=== PATIENT | male | born 1950 | race Caucasian/White ===

== ENCOUNTER 2020-02-04 05:06 | Emergency (ER) | payer OTHER ==
[2020-02-04] MEDS ORDERED: Sodium Chloride 0.9% 1000 ML 1,000 ML IV STA ×2 (05:11→08:04)
--- NOTE | 2020-02-04 05:20 | ERPHSYRPT ---
- History of Present Illness Historian: patient, EMS Exam Limitations: no limitations Patient Subjective Stated Complaint: . Triage Nursing Assessment: . Timing/Duration: today Activities at Onset: none Quality: fullness, sharpness Abdominal Pain Onset Location: generalized abdomen Pain Radiation: no radiation Severity of Pain-Max: mild Severity of Pain-Current: mild Modifying Factors: Improves With: movement, palpation Associated Symptoms: syncope, weakness, other (increased resp) Previous symptoms: no prior history, recent hospitalization, recently treated Hx Tetanus, Diphtheria Vaccination/Date Given: No (unknown) Hx Influenza Vaccination/Date Given: No (unknown) Hx Pneumococcal Vaccination/Date Given: No (unknown) Immunizations Up to Date: No (unknown) <DEBBIE FARLEY - Last Filed: 02/04/20 06:56> <ELY MULLIGAN - Last Filed: 02/04/20 18:16> - History of Present Illness Time Seen by Provider: 02/04/20 05:16 Physician History: pt had back surgery for a 'cyst' at [facility] 2 weeks ago , and has been falling recent ly with last one this night and was unable to stand afterwards. now has abd pain and tenderness. no neuro deficit but is hypotensive in 80s on BP upon arrival. Also c/o pain in both hips after fall. and left shoulder , neck and left forehead ( small superficial lac ) can close with steristrip. not complaining of short of breath but appears dyspneic at resp rate - and has low O2 so D dimer also ordered. (DEBBIE FARLEY) Allergies/Adverse Reactions: ginseng Allergy (Verified 02/04/20 05:15) Penicillins Allergy (Verified 02/04/20 05:15) Home Medications: Albuterol Sulfate [Proventil Hfa] 6.7 gm IH Q6HPRN PRN 03/21/13 [History] Aspirin EC 325 mg [Ecotrin 325 MG] 325 mg PO DAILY 03/21/13 [History] Atenolol [Tenormin] 25 mg PO DAILY 03/21/13 [History] Budesonide/Formoterol Fumarate [Symbicort 160-4.5 Mcg Inhaler] 6 gm IH BID 03/21/13 [History] Gabapentin 900 mg PO TID 03/21/13 [History] Lisinopril 10 mg [Zestril 10 MG] 10 mg PO DAILY 03/21/13 [History] PANTOPRAZOLE 40 mg Tablet [Protonix 40MG Tablet] 40 mg PO BID 03/21/13 [History] Venlafaxine HCl [Venlafaxine HCl ER] 225 mg PO DAILY 03/21/13 [History] Ascorbic Acid [Vitamin C] 1,000 mg PO BID 03/11/16 [History] Atorvastatin Calcium 40 mg PO HS 03/11/16 [History] Calcium Polycarbophil 625 mg PO DAILY 03/11/16 [History] Cholecalciferol (Vitamin D3) [Vitamin D3] 1,000 unit PO BID 03/11/16 [History] Cyanocobalamin (Vitamin B-12) [Cyanocobalamin] 1,000 mcg PO DAILY 03/11/16 [History] Docusate Sodium [Stool Softener] 50 mg PO BID 03/11/16 [History] Hydrocodone/Acetaminophen [Hydrocodon-Acetaminophen 5-325] 1 each PO BID PRN 03/11/16 [History] Naproxen Sodium 500 mg PO BID 03/11/16 [History] Potassium Gluconate 595 mg PO BID 03/11/16 [History] Sennosides 8.6 mg PO BID 03/11/16 [History] Trazodone HCl 100 mg PO HS 03/11/16 [History] hydrOXYzine pamoate [Hydroxyzine Pamoate] 50 mg PO HS 03/11/16 [History] Travel Risk - International Travel Have you traveled outside of the country in past 3 weeks: No - Coronavirus Screening Are you exhibiting any of the following symptoms?: No Close contact with a COVID-19 positive Pt in past 14-21 Days: No <DEBBIE FARLEY - Last Filed: 02/04/20 06:56> - Review of Systems Constitutional: Weakness, No Fever, No Chills Eyes: No Symptoms Ears, Nose, & Throat: No Symptoms Respiratory: Dyspnea, No Cough Cardiac: No Chest Pain, No Edema, No Syncope Abdominal/Gastrointestinal: No Abdominal Pain, No Nausea, No Vomiting, No Diarrhea Genitourinary Symptoms: No Dysuria Musculoskeletal: Back Pain, Fall, No Neck Pain Skin: No Rash Neurological: No Dizziness, No Focal Weakness, No Sensory Changes Psychological: No Symptoms Endocrine: No Symptoms Hematologic/Lymphatic: No Symptoms Immunological/Allergic: No Symptoms All Other Systems: Reviewed and Negative <DEBBIE FARLEY - Last Filed: 02/04/20 06:56> - Past Medical History Pertinent Past Medical History: Yes Neurological History: No Pertinent History ENT History: No Pertinent History Cardiac History: High Cholesterol, Hypertension, Myocardial Infarction ([place]) Respiratory History: COPD, Emphysema, Sleep Apnea Endocrine Medical History: Diabetes Type II Musculoskeletal History: Degenerative Disk Disease, Osteoarthritis, Other GI Medical History: GERD History: No Pertinent History Psycho-Social History: Depression Male Reproductive Disorders: No Pertinent History - Past Surgical History Past Surgical History: Yes Neuro Surgical History: No Pertinent History Cardiac: Cardiac Catheterization, Cardiac Stent Respiratory: No Pertinent History Gastrointestinal: No Pertinent History Genitourinary: No Pertinent History Male Surgical History: No Pertinent History Other Surgical History: back surgery. trigger finger - Social History Smoking Status: Never smoker Exposure to second hand smoke: No Drug Use: none Patient Lives Alone: No <DEBBIE FARLEY - Filed: 02/04/20 06:56> - Physical Exam General Appearance: no apparent distress, alert Eye Exam: PERRL/EOMI, eyes nml inspection Ears, Nose, Throat Exam: normal ENT inspection, pharynx normal, moist mucous membranes, other (tender left zoroastrianism) Neck Exam: normal inspection, supple, limited range of motion, midline tenderness Respiratory Exam: normal breath sounds, lungs clear, No respiratory distress Cardiovascular Exam: regular rate/rhythm, normal heart sounds Gastrointestinal/Abdomen Exam: soft, tenderness, distention, No mass Rectal Exam: deferred Back Exam: normal inspection, normal range of motion, No CVA tenderness, No vertebral tenderness Extremity Exam: normal inspection, pelvis stable, limited range of motion, tenderness (bilateral hips and left shoulder with motion/palp) Neurologic Exam: alert, oriented x 3, cooperative, normal mood/affect, nml cerebellar function, sensation nml, No motor deficits Skin Exam: normal color, warm, dry, laceration (nondistactable Superficial) SpO2 Interpretation: hypoxic SpO2: 84 O2 Delivery: Room Air <CHRISTAL FARLEYH ARLENE - Last Filed: 02/04/20 06:56> - Nursing Vital Signs Nursing Vital Signs: Initial Vital Signs Temperature 98 F 02/04/20 05:09 Pulse Rate 101 H 02/04/20 05:09 Respiratory Rate 20 02/04/20 05:09 Blood Pressure 80/40 02/04/20 05:09 O2 Sat by Pulse Oximetry 84 L 02/04/20 05:09 Pain Scale Pain Intensity 0 Procedures - Laceration/Wound Repair Left Frontal Wound Location: Left, forehead Wound Length (cm): 1.5 Wound's Depth, Shape: superficial, linear Wound Explored: no foreign body noted Irrigated: Yes Hibiclens Prep: Yes Volume Anesthetic (ccs): 0 Wound Debrided: minimal Wound Repaired With: Steri-strips Layer Closure?: No Sterile Dressing Applied?: Yes Splint Applied?: No Sling Applied?: No <DEBBIE FARLEY - Last Filed: 02/04/20 06:56> - Course Nursing assessment & vital signs reviewed: Yes EKG Interpreted by Me: Sinus Rhythm, Right [place] Deviation, Right Bundle Branch Block, Non-specific ST Changes <DEBBIE FARLEY - Last Filed: 02/04/20 06:56> - Course EKG Interpreted by Me: RATE (NSR/RBBB/Prolonged QTc/NL ST segments) - Radiology Exams Chest X-ray Interpretation: Interpreted by me (cardiomegaly/atelectasis) Pelvis X-ray Interpretation: Discussed w/ radiologist (B hips neg for fx) Shoulder X-ray Interpretation: Discussed w/ radiologist (L shoulder neg) - CT Exams Head CT Interpretation: Discussed w/radiologist (Nothing acute per Rad) Cervical Spine CT Interpretation: Discussed w/radiologist (Nothing acute per Rad) Abdomen/Pelvis CT Interpretation: Discussed w/radiologist (Cholelithiasis wo cholecystit is/Lumbar collection of fluid, seroma vs abscess) <ELY MULLIGAN - Last Filed: 02/04/20 18:16> Ordered Tests: Active Orders 24 hr Category Date Time Status Logger All Round STAT Care 02/04/20 05:24 Completed Catheter-[place] STAT Care 02/04/20 05:11 Completed EKG-ER Only STAT Care 02/04/20 05:11 Completed IV Insertion STAT Care 02/04/20 05:11 Completed NPO (ED) STAT Care 02/04/20 05:11 Completed Oxygen-ED Only Nasal Cannula 2 lpm Care 02/04/20 05:23 Completed Wound Care STAT Care 02/04/20 05:53 Completed ABDOMEN AND PELVIS W/0 CONTRAS [CT] Stat Exams 02/04/20 05:13 Completed CERVICAL SPINE WO CONTRAST [CT] Stat Exams 02/04/20 05:42 Completed CHEST 1 VIEW (PORTABLE) Stat Exams 02/04/20 05:13 Completed HEAD WITHOUT CONTRAST [CT] Stat Exams 02/04/20 05:43 Completed HIPS ANGELINA(2V) INCL PEL IF DONE Stat Exams 02/04/20 05:25 Completed RECONSTRUCTION [CT] Routine Exams 02/04/20 07:11 Completed SHOULDER Stat Exams 02/04/20 05:28 Completed BNP [NT PRO BNP] Stat Lab 02/04/20 05:29 Completed CBC W DIFF Stat Lab 02/04/20 05:25 Completed CMP Stat Lab 02/04/20 05:25 Completed CULTURE,URINE Stat Lab 02/04/20 05:46 Ordered D-DIMER QUANTITATIVE Stat Lab 02/04/20 05:30 Completed LIPASE Stat Lab 02/04/20 05:25 Completed Lactic Acid Stat Lab 02/04/20 05:40 Completed Lactic Acid Stat Lab 02/04/20 07:45 Completed Manual Differential NC Stat Lab 02/04/20 05:25 Completed PROTIME WITH INR Stat Lab 02/04/20 05:25 Completed TROPONIN Q3H Lab 02/04/20 05:15 Completed TROPONIN Q3H Lab 02/04/20 08:15 Completed TROPONIN Q3H Lab 02/04/20 11:15 Completed UA W/RFX UR CULTURE Stat Lab 02/04/20 05:46 Completed Medication Summary Discontinued Medications Generic Name Dose Route Start Last Admin Trade Name Freq PRN Reason Stop Dose Admin Diphtheria/Tetanus/Acell Pertussis 0.5 ml 02/04/20 05:56 02/04/20 06:45 Adacel Vial IM 02/04/20 05:57 0.5 ml .ONCE ONE Administration Diphtheria/Tetanus/Acell Pertussis Confirm 02/04/20 06:09 Adacel Vial Administered 02/04/20 06:10 Dose 0.5 ml IM .STK-MED ONE Sodium Chloride 1,000 mls @ 999 mls/hr 02/04/20 05:11 02/04/20 06:56 Sodium Chloride 0.9% 1000 Ml IV 02/04/20 06:11 Infused .Q1H1M STA Infusion Sodium Chloride Confirm 02/04/20 05:24 Sodium Chloride 0.9% 1000 Ml Administered 02/04/20 05:25 Dose 1,000 mls @ ud .ROUTE .STK-MED ONE Sodium Chloride 1,000 mls @ 999 mls/hr 02/04/20 08:04 02/04/20 10:51 Sodium Chloride 0.9% 1000 Ml IV 02/04/20 09:04 Infused .Q1H1M STA Infusion Sodium Chloride Confirm 02/04/20 08:07 Sodium Chloride 0.9% 1000 Ml Administered 02/04/20 08:08 Dose 1,000 mls @ ud .ROUTE .STK-MED ONE Lab/Rad Data: Laboratory Result Diagrams 02/04/20 05:25 02/04/20 05:25 Laboratory Results 02/04/20 02/04/20 02/04/20 Range/Units 11:15 08:15 07:45 WBC (4.0-10.5) K/mm3 RBC (4.1-5.6) M/mm3 Hgb (12.5-18.0) gm/dl Hct (42-50) % MCV (78-100) fl MCH (26-32) pg MCHC (32-36) g/dl RDW (11.5-14.0) % Plt Count (150-450) K/mm3 MPV (7.5-11.0) fl Segmented Neutrophils (36.-66.) % Lymphocytes (Manual) (24-44) % Monocytes (Manual) (0.0-12.0) % Eosinophils (Manual) (0.00-3.0) % RBC Morphology PT (8.83-12.87) SECONDS INR (0.8-3.0) D-Dimer (215-500) ng/mL Sodium (137-145) mmol/L Potassium (3.5-5.1) mmol/L Chloride (98-107) mmol/L Carbon Dioxide (22-30) mmol/L Anion Gap (5-15) MEQ/L BUN (9-20) mg/dL Creatinine (0.66-1.25) mg/dL Estimated GFR ML/MIN Glucose (74-106) mg/dL Lactic Acid 1.5 (0.4-2.0) Calcium (8.4-10.2) mg/dL Total Bilirubin (0.2-1.3) mg/dL AST (17-59) U/L ALT (0-50) U/L Alkaline Phosphatase (38-126) U/L Troponin I 0.041 H* 0.028 (0.000-0.034) ng/mL NT-Pro-B Natriuret Pep (0-900) pg/mL Serum Total Protein (6.3-8.2) g/dL Albumin (3.5-5.0) g/dL Lipase (23-300) U/L Urine Color (YELLOW) Urine Appearance (CLEAR) Urine pH (5-6) Ur Specific [place] (1.005-1.025) Urine Protein (Negative) Urine Ketones (NEGATIVE) Urine Blood (0-5) Brant/ul Urine Nitrite (NEGATIVE) Urine Bilirubin (NEGATIVE) Urine Urobilinogen (0-1) mg/dL Ur Leukocyte Esterase (NEGATIVE) Urine WBC (Auto) (0-5) /HPF Urine RBC (Auto) (0-2) /HPF U Epithel Cells (Auto) (FEW) /HPF Urine Bacteria (Auto) (NEGATIVE) /HPF Other Casts (Auto) (NEGATIVE) /LPF Urine Mucus (Auto) (NEGATIVE) /HPF Urine Culture Reflexed (NO) Urine Glucose (NEGATIVE) mg/dL ABO Group Rh Factor Antibody Screen (NEGATIVE) Crossmatch (COMPATIBLE) 02/04/20 02/04/20 02/04/20 Range/Units 05:55 05:55 05:55 WBC (4.0-10.5) K/mm3 RBC (4.1-5.6) M/mm3 Hgb (12.5-18.0) gm/dl Hct (42-50) % MCV (78-100) fl MCH (26-32) pg MCHC (32-36) g/dl RDW (11.5-14.0) % Plt Count (150-450) K/mm3 MPV (7.5-11.0) fl Segmented Neutrophils (36.-66.) % Lymphocytes (Manual) (24-44) % Monocytes (Manual) (0.0-12.0) % Eosinophils (Manual) (0.00-3.0) % RBC Morphology PT (8.83-12.87) SECONDS INR (0.8-3.0) D-Dimer (215-500) ng/mL Sodium (137-145) mmol/L Potassium (3.5-5.1) mmol/L Chloride (98-107) mmol/L Carbon Dioxide (22-30) mmol/L Anion Gap (5-15) MEQ/L BUN (9-20) mg/dL Creatinine (0.66-1.25) mg/dL Estimated GFR ML/MIN Glucose (74-106) mg/dL Lactic Acid (0.4-2.0) Calcium (8.4-10.2) mg/dL Total Bilirubin (0.2-1.3) mg/dL AST (17-59) U/L ALT (0-50) U/L Alkaline Phosphatase (38-126) U/L Troponin I (0.000-0.034) ng/mL NT-Pro-B Natriuret Pep (0-900) pg/mL Serum Total Protein (6.3-8.2) g/dL Albumin (3.5-5.0) g/dL Lipase (23-300) U/L Urine Color (YELLOW) Urine Appearance (CLEAR) Urine pH (5-6) Ur Specific [place] (1.005-1.025) Urine Protein (Negative) Urine Ketones (NEGATIVE) Urine Blood (0-5) Brant/ul Urine Nitrite (NEGATIVE) Urine Bilirubin (NEGATIVE) Urine Urobilinogen (0-1) mg/dL Ur Leukocyte Esterase (NEGATIVE) Urine WBC (Auto) (0-5) /HPF Urine RBC (Auto) (0-2) /HPF U Epithel Cells (Auto) (FEW) /HPF Urine Bacteria (Auto) (NEGATIVE) /HPF Other Casts (Auto) (NEGATIVE) /LPF Urine Mucus (Auto) (NEGATIVE) /HPF Urine Culture Reflexed (NO) Urine Glucose (NEGATIVE) mg/dL ABO Group A Rh Factor POSITIVE Antibody Screen NEGATIVE (NEGATIVE) Crossmatch COMPATIBLE COMPATIBLE (COMPATIBLE) 02/04/20 02/04/20 02/04/20 Range/Units 05:46 05:40 05:30 WBC (4.0-10.5) K/mm3 RBC (4.1-5.6) M/mm3 Hgb (12.5-18.0) gm/dl Hct (42-50) % MCV (78-100) fl MCH (26-32) pg MCHC (32-36) g/dl RDW (11.5-14.0) % Plt Count (150-450) K/mm3 MPV (7.5-11.0) fl Segmented Neutrophils (36.-66.) % Lymphocytes (Manual) (24-44) % Monocytes (Manual) (0.0-12.0) % Eosinophils (Manual) (0.00-3.0) % RBC Morphology PT (8.83-12.87) SECONDS INR (0.8-3.0) D-Dimer 4879 H* (215-500) ng/mL Sodium (137-145) mmol/L Potassium (3.5-5.1) mmol/L Chloride (98-107) mmol/L Carbon Dioxide (22-30) mmol/L Anion Gap (5-15) MEQ/L BUN (9-20) mg/dL Creatinine (0.66-1.25) mg/dL Estimated GFR ML/MIN Glucose (74-106) mg/dL Lactic Acid 3.6 H (0.4-2.0) Calcium (8.4-10.2) mg/dL Total Bilirubin (0.2-1.3) mg/dL AST (17-59) U/L ALT (0-50) U/L Alkaline Phosphatase (38-126) U/L Troponin I (0.000-0.034) ng/mL NT-Pro-B Natriuret Pep (0-900) pg/mL Serum Total Protein (6.3-8.2) g/dL Albumin (3.5-5.0) g/dL Lipase (23-300) U/L Urine Color YELLOW (YELLOW) Urine Appearance CLEAR (CLEAR) Urine pH 5.0 (5-6) Ur Specific [place] 1.027 (1.005-1.025) Urine Protein 30 (Negative) Urine Ketones NEGATIVE (NEGATIVE) Urine Blood NEGATIVE (0-5) Brant/ul Urine Nitrite NEGATIVE (NEGATIVE) Urine Bilirubin NEGATIVE (NEGATIVE) Urine Urobilinogen 2 (0-1) mg/dL Ur Leukocyte Esterase NEGATIVE (NEGATIVE) Urine WBC (Auto) NONE (0-5) /HPF Urine RBC (Auto) NONE (0-2) /HPF U Epithel Cells (Auto) NONE (FEW) /HPF Urine Bacteria (Auto) NONE (NEGATIVE) /HPF Other Casts (Auto) NEGATIVE (NEGATIVE) /LPF Urine Mucus (Auto) SLIGHT (NEGATIVE) /HPF Urine Culture Reflexed ORDERED SEPARATELY (NO) Urine Glucose >=500 (NEGATIVE) mg/dL ABO Group Rh Factor Antibody Screen (NEGATIVE) Crossmatch (COMPATIBLE) 02/04/20 02/04/20 02/04/20 Range/Units 05:29 05:25 05:25 WBC (4.0-10.5) K/mm3 RBC (4.1-5.6) M/mm3 Hgb (12.5-18.0) gm/dl Hct (42-50) % MCV (78-100) fl MCH (26-32) pg MCHC (32-36) g/dl RDW (11.5-14.0) % Plt Count (150-450) K/mm3 MPV (7.5-11.0) fl Segmented Neutrophils (36.-66.) % Lymphocytes (Manual) (24-44) % Monocytes (Manual) (0.0-12.0) % Eosinophils (Manual) (0.00-3.0) % RBC Morphology PT 13.1 H (8.83-12.87) SECONDS INR 1.16 (0.8-3.0) D-Dimer (215-500) ng/mL Sodium 134 L (137-145) mmol/L Potassium 4.9 (3.5-5.1) mmol/L Chloride 97 L (98-107) mmol/L Carbon Dioxide 28 (22-30) mmol/L Anion Gap 13.0 (5-15) MEQ/L BUN 22 H (9-20) mg/dL Creatinine 2.10 H (0.66-1.25) mg/dL Estimated GFR 33.4 ML/MIN Glucose 374 H (74-106) mg/dL Lactic Acid (0.4-2.0) Calcium 9.2 (8.4-10.2) mg/dL Total Bilirubin 0.50 (0.2-1.3) mg/dL AST 22 (17-59) U/L ALT 17 (0-50) U/L Alkaline Phosphatase 126 (38-126) U/L Troponin I (0.000-0.034) ng/mL NT-Pro-B Natriuret Pep 534 (0-900) pg/mL Serum Total Protein 6.7 (6.3-8.2) g/dL Albumin 3.8 (3.5-5.0) g/dL Lipase 45 (23-300) U/L Urine Color (YELLOW) Urine Appearance (CLEAR) Urine pH (5-6) Ur Specific [place] (1.005-1.025) Urine Protein (Negative) Urine Ketones (NEGATIVE) Urine Blood (0-5) Brant/ul Urine Nitrite (NEGATIVE) Urine Bilirubin (NEGATIVE) Urine Urobilinogen (0-1) mg/dL Ur Leukocyte Esterase (NEGATIVE) Urine WBC (Auto) (0-5) /HPF Urine RBC (Auto) (0-2) /HPF U Epithel Cells (Auto) (FEW) /HPF Urine Bacteria (Auto) (NEGATIVE) /HPF Other Casts (Auto) (NEGATIVE) /LPF Urine Mucus (Auto) (NEGATIVE) /HPF Urine Culture Reflexed (NO) Urine Glucose (NEGATIVE) mg/dL ABO Group Rh Factor Antibody Screen (NEGATIVE) Crossmatch (COMPATIBLE) 02/04/20 02/04/20 Range/Units 05:25 05:15 WBC 8.9 (4.0-10.5) K/mm3 RBC 3.57 L (4.1-5.6) M/mm3 Hgb 9.5 L (12.5-18.0) gm/dl Hct 33.0 L (42-50) % MCV 92.4 (78-100) fl MCH 26.6 (26-32) pg MCHC 28.8 L (32-36) g/dl RDW 15.4 H (11.5-14.0) % Plt Count 335 (150-450) K/mm3 MPV 10.0 (7.5-11.0) fl Segmented Neutrophils 61 (36.-66.) % Lymphocytes (Manual) 20 L (24-44) % Monocytes (Manual) 14 H (0.0-12.0) % Eosinophils (Manual) 5 H (0.00-3.0) % RBC Morphology 1+HYPO PT (8.83-12.87) SECONDS INR (0.8-3.0) D-Dimer (215-500) ng/mL Sodium (137-145) mmol/L Potassium (3.5-5.1) mmol/L Chloride (98-107) mmol/L Carbon Dioxide (22-30) mmol/L Anion Gap (5-15) MEQ/L BUN (9-20) mg/dL Creatinine (0.66-1.25) mg/dL Estimated GFR ML/MIN Glucose (74-106) mg/dL Lactic Acid (0.4-2.0) Calcium (8.4-10.2) mg/dL Total Bilirubin (0.2-1.3) mg/dL AST (17-59) U/L ALT (0-50) U/L Alkaline Phosphatase (38-126) U/L Troponin I < 0.012 (0.000-0.034) ng/mL NT-Pro-B Natriuret Pep (0-900) pg/mL Serum Total Protein (6.3-8.2) g/dL Albumin (3.5-5.0) g/dL Lipase (23-300) U/L Urine Color (YELLOW) Urine Appearance (CLEAR) Urine pH (5-6) Ur Specific [place] (1.005-1.025) Urine Protein (Negative) Urine Ketones (NEGATIVE) Urine Blood (0-5) Brant/ul Urine Nitrite (NEGATIVE) Urine Bilirubin (NEGATIVE) Urine Urobilinogen (0-1) mg/dL Ur Leukocyte Esterase (NEGATIVE) Urine WBC (Auto) (0-5) /HPF Urine RBC (Auto) (0-2) /HPF U Epithel Cells (Auto) (FEW) /HPF Urine Bacteria (Auto) (NEGATIVE) /HPF Other Casts (Auto) (NEGATIVE) /LPF Urine Mucus (Auto) (NEGATIVE) /HPF Urine Culture Reflexed (NO) Urine Glucose (NEGATIVE) mg/dL ABO Group Rh Factor Antibody Screen (NEGATIVE) Crossmatch (COMPATIBLE) - Progress Progress: improved, re-examined Counseled pt/family regarding: lab results, diagnosis, need for follow-up, rad results <DEBBIE FARLEY - Last Filed: 02/04/20 06:56> - Progress Progress: improved Counseled pt/family regarding: lab results, diagnosis, rad results <ELY MULLIGAN - Last Filed: 02/04/20 18:16> - Progress Progress Note: 02/04/20 06:56 bp resp to bolus back up to 90 and poulse ox up at [address] juarez at change of shift after discussion of penindg studies and findings current . and intor to pt. for continuing and final tx and disposition. (DEBBIE FARLEY) 02/04/20 11:[address] Deleon at [facility] for anemia/renal failure/possible post- surgical abscess/markedly pos DD/elevating troponin. 02/04/20 18:12 Pt's troponin became positive before transfer. Pt stable when care assumed per ambulance service. (ELY MULLIGAN) <DEBBIE FARLEY - Last Filed: 02/04/20 06:56> - Departure Departure Disposition: Transfer Critical Care Time: Yes Critical Care Time(excluding separately billable procedures): Critical 30-74 mins <ELY MULLIGAN - Last Filed: 02/04/20 18:16> - Departure Clinical Impression: Renal failure, Anemia, Postoperative abscess, NSTEMI (non-ST elevated myocardial infarction) Condition: Stable Referrals: HOSPITAL,'S [Primary Care Provider] -
[2020-02-04] MEDS ORDERED: Sodium Chloride 0.9% 1000 ML 1,000 ML ONE ×2 (05:24→08:07)
[2020-02-04 05:39] LABS: Hemoglobin 9.5 gm/dl (12.5-18.0); Mean Cell Volume 92.4 fl (78-100); Mean Corpuscular Hemoglobin 26.6 pg (26-32); Mean Corpuscular Hgb Concent. 28.8 g/dl (32-36); Platelet Count 335 K/mm3 (150-450); Red Blood Count 3.57 M/mm3 (4.1-5.6); Red Cell Distribution Width 15.4 % (11.5-14.0); White Blood Count 8.9 K/mm3 (4.0-10.5)
[2020-02-04 05:45] LABS: INR 1.16 (0.8-3.0); PROTIME 13.1 SECONDS (8.83-12.87)
[2020-02-04 05:50] LABS: ALBUMIN 3.8 g/dL (3.5-5.0); BILIRUBIN,TOTAL 0.5 mg/dL (0.2-1.3); Calcium 9.2 mg/dL (8.4-10.2); Creatinine 1 2.1 mg/dL (0.66-1.25); EST GLOMERULAR FILTRATION RATE 33.4 ML/MIN; Potassium 4.9 mmol/L (3.5-5.1); Total Protein 6.7 g/dL (6.3-8.2)
[2020-02-04] MEDS ORDERED: Adacel Vial IM ONE ×2 (05:56→06:09)
[2020-02-04 06:21] LABS: Appearance CLEAR (CLEAR); Bilirubin NEGATIVE (NEGATIVE); Blood NEGATIVE Ery/ul (0-5); Glucose >=500 mg/dL (NEGATIVE); Ketones NEGATIVE (NEGATIVE); Leukocyte Esterase NEGATIVE (NEGATIVE); Mucus SLIGHT /HPF (NEGATIVE); Nitrite NEGATIVE (NEGATIVE); Protein,Urine Dip 30 (Negative); Specific Gravity 1.027 (1.005-1.025); Urobilinogen 2 mg/dL (0-1)
[2020-02-04 08:07] LABS: ABO TYPING A; Antibody Screen NEGATIVE (NEGATIVE); RH TYPING POSITIVE
[2020-02-04 08:15] LABS: CROSS MATCH (PRBC) COMPATIBLE (COMPATIBLE)
[2020-02-04 08:30] LABS: Eosinophil 5 % (0.00-3.0); Lymphocytes 20 % (24-44); Monocyte 14 % (0.0-12.0); Neutrophils 61 % (36.-66.); Total Cells Counted 100
--- NOTE | 2020-02-04 09:26 | XRAY ---
Indication: Frequent falls. Multiple contiguous axial images obtained through the head without contrast. Comparison: None Several images are slightly degraded by motion artifact. There is age-appropriate global atrophy. No acute intracranial hemorrhage, abnormal extra-axial fluid collection, or mass effect. Fourth ventricle is midline without hydrocephalus. Gaspar-white matter differentiation preserved. Bony calvarium grossly intact. Visualized paranasal sinuses and mastoid air cells are clear. Impression: Motion artifact. Atrophy within normal limits for patient's age. No gross acute intracranial abnormalities.
--- NOTE | 2020-02-04 09:30 | XRAY ---
Indication: Frequent falls. Multiple contiguous axial images obtained through the cervical spine. Sagittal and coronal reformatted images. Comparison: None Several images are slightly degraded by motion artifact. Osseous structures demineralized consistent with patient's age. 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 Axial images grossly negative for acute fracture, suspicious bony lesions, or spinal canal stenosis. Mild C4-C7 degenerative endplate spurring. Sagittal and coronal reformatted images demonstrates normal alignment with mild C4-C7 disc space narrowing. No acute compression fracture, subluxation, or jumped facet. Normal appearing craniocervical junction. Visualized noncontrasted soft tissues demonstrates mild carotid calcifications bilaterally. Lung apices are clear. Patient is edentulous. Impression: 1. Motion artifact. 2. 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 3. Osteopenia and multilevel degenerative changes. 4. Grossly negative for acute fracture/subluxation.
--- NOTE | 2020-02-04 09:38 | XRAY ---
Indication: Pain. Lethargy. Frequent falls. Multiple contiguous axial images obtained through the abdomen and pelvis without contrast as ordered. Comparison: None Several images slightly degraded by motion artifact and also mild beam artifact from patient's arms. Lung bases demonstrates mild dependent atelectasis. Heart is not enlarged. Noncontrasted stomach and bowel loops appear nonobstructed. There is mild diffuse scattered colonic fecal debris throughout. [place] catheter empties the urinary bladder. No free fluid/air. Gallbladder demonstrates several tiny gallstones in the dependent portion. Tiny hepatic/splenic calcified granulomas. Remaining liver, pancreas, spleen, adrenal glands, kidneys, and ureters appear unremarkable for noncontrast exam. Mild scattered aortoiliac calcifications without AAA. Osseous structures demineralized consistent with patient's age. There has been L3-L5 laminectomy with posterior fusion. Intact bilateral pedicle screws/hooks/[place] rods/L3-L4 intervertebral spacer. Posterior paraspinal muscles and subcutaneous tissues posterior to the surgical levels appear indurated with multifocal fluid collections, largest 4.0 x 2.6 x 4.0 cm possibly postoperative hematoma/seroma. Abscess not completely excluded on this noncontrast exam. Impression: 1. Motion artifact. 2. L3-L5 laminectomy with posterior fusion. Adjacent posterior paraspinal soft tissue induration with fluid collections as detailed. Rule out postoperative hematoma/seroma versus abscesses. 3. Incidental cholelithiasis, diffuse fecal stasis, old granulomatous disease, and [place] catheter in situ.
--- NOTE | 2020-02-04 09:40 | XRAY ---
Indication: Pain. Lethargy. Frequent falls. Axial, coronal, and sagittal reformatted images of the lumbar spine obtained using the raw data from the CT abdomen/pelvis study of the same day. Comparison: March 21, 2013 Osseous structures demineralized consistent with patient's age. There has been interval L3-L5 laminectomy with posterior fusion. Intact bilateral pedicle screws/hooks/Mcmullen rods/L3-L4 intervertebral spacer producing beam artifact. Posterior paraspinal muscles and subcutaneous tissues posterior to the surgical levels appear indurated with multifocal fluid collections, largest 4.0 x 2.6 x 4.0 cm possibly postoperative hematoma/seroma. Abscess not completely excluded on this noncontrast exam. No gross acute fracture, suspicious bony lesions, or spinal canal stenosis. Sagittal and coronal reformatted images demonstrates normal alignment. No acute compression fracture or subluxation. CT abdomen/pelvis reported separately. Impression: 1. Motion artifact and beam artifact from spinal hardware. 2. New finding L3-L5 laminectomy with posterior fusion. Adjacent posterior paraspinal soft tissue induration with fluid collections as detailed. Rule out postoperative hematoma/seroma versus abscesses. 3. Incidental osteopenia.
--- NOTE | 2020-02-04 09:44 | XRAY ---
Indication: Frequent falls. Comparison: March 11, 2016. Portable chest now demonstrates borderline cardiomegaly and minimal left base discoid atelectasis/scarring. Stable mediastinal calcified nodes. Bony thorax intact.
--- NOTE | 2020-02-04 09:46 | XRAY ---
Indication: Pain. Frequent falls. Comparison: None AP pelvis and 2 views of the left and right hip demonstrates mild osteopenia, tiny left acetabulum/greater trochanter heterotopic ossifications, lower lumbar fusion surgery, and incidental Paris catheter. No other bony, articular, or soft tissue abnormalities.
--- NOTE | 2020-02-04 09:46 | XRAY ---
Indication: Pain. Frequent falls. Comparison: None 3 view left shoulder demonstrates mild osteopenia, mild AC degenerative arthropathy, cardiomegaly, mediastinal calcified nodes, and left lung base atelectasis/scarring. No other bony, articular, or soft tissue abnormalities.
[2020-02-04 11:09] VITALS: O2SAT 93
[2020-02-04 12:15] VITALS: BP 119/75; PULSE 100
== END 2020-02-04 13:25 | disposition critical access hospital (66) ==
LOC: ED 05:06
DX: N19 Unspecified kidney failure (principal); D64.9 Anemia, unspecified; T81.49XA Infection following a procedure, other surgical site, initial encounter; L02.91 Cutaneous abscess, unspecified; I21.4 Non-ST elevation (NSTEMI) myocardial infarction; Z79.899 Other long term (current) drug therapy; M25.552 Pain in left hip; M25.551 Pain in right hip; M25.512 Pain in left shoulder; M54.2 Cervicalgia; S01.81XA Laceration without foreign body of other part of head, initial encounter; W19.XXXA Unspecified fall, initial encounter; Y92.9 Unspecified place or not applicable; J44.9 Chronic obstructive pulmonary disease, unspecified; I10 Essential (primary) hypertension; G47.30 Sleep apnea, unspecified; F51.9 Sleep disorder not due to a substance or known physiological condition, unspecified; E11.9 Type 2 diabetes mellitus without complications
CPT/HCPCS: 36000; 36415; 51702; 70450; 71045; 72125; 73030; 73521; 74176; 76376; 80053; 81001; 83605; 83690; 83880; 84484; 85025; 85379; 85610; 86850; 86900; 86901; 86922; 87086; 90471; 90715; 93005; 93041; 96360; 96361; 99285

== ENCOUNTER 2020-02-10 17:24 | Emergency (ER) | payer OTHER ==
[2020-02-10] MEDS ORDERED: Sodium Chloride 0.9% 1000 ML 1,000 ML IV STA (18:01)
--- NOTE | 2020-02-10 18:04 | ERPHSYRPT ---
- History of Present Illness Time Seen by Provider: 02/10/20 18:02 Source: patient, EMS Exam Limitations: no limitations Patient Subjective Stated Complaint: Fall Triage Nursing Assessment: Patient brought into ED via EMS and transferred with assist of 3. Patient's skin pale, wam and dry. Patient had a fall today when he fell into the tv and hit his head. Patient released from [facility] on Tuesday. Patient denies pain or discomfort. Patient states he has not urinated since yesterday evening. Physician History: atient had a fall today when he fell into the tv and hit his head. Patient released from [facility] on Tuesday. Patient denies pain or discomfort. Patient states he has not urinated since yesterday evening. Witnessed: unwitnessed Prior Episodes: single episode today Timing/Duration: today Precipitating Factors: unknown Loss of Consciousness: no loss of consciousness Charcter of event(s): felt faint Allergies/Adverse Reactions: ginseng Allergy (Verified 02/10/20 17:31) Penicillins Allergy (Verified 02/10/20 17:31) Home Medications: Albuterol Sulfate [Proventil Hfa] 6.7 gm IH Q6HPRN PRN 03/21/13 [History] Aspirin EC 325 mg [Ecotrin 325 MG] 325 mg PO DAILY 03/21/13 [History] Atenolol [Tenormin] 25 mg PO DAILY 03/21/13 [History] Budesonide/Formoterol Fumarate [Symbicort 160-4.5 Mcg Inhaler] 6 gm IH BID 03/21/13 [History] Gabapentin 900 mg PO TID 03/21/13 [History] Lisinopril 10 mg [Zestril 10 MG] 10 mg PO DAILY 03/21/13 [History] PANTOPRAZOLE 40 mg Tablet [Protonix 40MG Tablet] 40 mg PO BID 03/21/13 [History] Venlafaxine HCl [Venlafaxine HCl ER] 225 mg PO DAILY 03/21/13 [History] Ascorbic Acid [Vitamin C] 1,000 mg PO BID 03/11/16 [History] Atorvastatin Calcium 40 mg PO HS 03/11/16 [History] Calcium Polycarbophil 625 mg PO DAILY 03/11/16 [History] Cholecalciferol (Vitamin D3) [Vitamin D3] 1,000 unit PO BID 03/11/16 [History] Cyanocobalamin (Vitamin B-12) [Cyanocobalamin] 1,000 mcg PO DAILY 03/11/16 [History] Docusate Sodium [Stool Softener] 50 mg PO BID 03/11/16 [History] Hydrocodone/Acetaminophen [Hydrocodon-Acetaminophen 5-325] 1 each PO BID PRN 03/11/16 [History] Naproxen Sodium 500 mg PO BID 03/11/16 [History] Potassium Gluconate 595 mg PO BID 03/11/16 [History] Sennosides 8.6 mg PO BID 03/11/16 [History] Trazodone HCl 100 mg PO HS 03/11/16 [History] hydrOXYzine pamoate [Hydroxyzine Pamoate] 50 mg PO HS 03/11/16 [History] Hx Tetanus, Diphtheria Vaccination/Date Given: No (unknown) Hx Influenza Vaccination/Date Given: No (unknown) Hx Pneumococcal Vaccination/Date Given: No (unknown) Immunizations Up to Date: Yes Travel Risk - International Travel Have you traveled outside of the country in past 3 weeks: No - Coronavirus Screening Are you exhibiting any of the following symptoms?: No Close contact with a COVID-19 positive Pt in past 14-21 Days: No - Past Medical History Pertinent Past Medical History: Yes Neurological History: No Pertinent History ENT History: No Pertinent History Cardiac History: High Cholesterol, Hypertension, Myocardial Infarction ([place]) Respiratory History: COPD, Emphysema, Sleep Apnea Endocrine Medical History: Diabetes Type II Musculoskeletal History: Degenerative Disk Disease, Osteoarthritis, Other GI Medical History: GERD History: No Pertinent History Psycho-Social History: Depression Male Reproductive Disorders: No Pertinent History - Past Surgical History Past Surgical History: Yes Neuro Surgical History: No Pertinent History Cardiac: Cardiac Catheterization, Cardiac Stent Respiratory: No Pertinent History Gastrointestinal: No Pertinent History Genitourinary: No Pertinent History Male Surgical History: No Pertinent History Other Surgical History: back surgery. trigger finger - Social History Smoking Status: Never smoker Exposure to second hand smoke: No Drug Use: none Patient Lives Alone: No - Review of Systems Constitutional: No Fever, No Chills Eyes: No Symptoms, Other (bruise on left forehead) Ears, Nose, & Throat: No Symptoms Respiratory: No Cough, No Dyspnea Cardiac: No Chest Pain, No Edema, No Syncope Abdominal/Gastrointestinal: No Abdominal Pain, No Nausea, No Vomiting, No Diarrhea Genitourinary Symptoms: No Dysuria Musculoskeletal: No Back Pain, No Neck Pain Skin: No Rash Neurological: No Dizziness, No Focal Weakness, No Sensory Changes Psychological: No Symptoms Endocrine: No Symptoms All Other Systems: Reviewed and Negative Physical Exam - Nursing Vital Signs Nursing Vital Signs: Initial Vital Signs Temperature 97.0 F 02/10/20 17:32 Pulse Rate 72 02/10/20 17:32 Blood Pressure 68/0 02/10/20 17:32 O2 Sat by Pulse Oximetry 87 L 02/10/20 17:32 Pain Scale Pain Intensity 0 - [place] Coma Scale Best Eye Response ([place]): (4) open spontaneously Best Verbal Response ([place]): (5) oriented Best Motor Response ([place]): (6) obeys commands [place] Total: 15 - Physical Exam General Appearance: no apparent distress, alert Eye Exam: bilateral eye: PERRL, EOMI Ears, Nose, Throat Exam: normal ENT inspection, pharynx normal, moist mucous membranes Neck Exam: normal inspection, non-tender, supple, full range of motion Respiratory: normal breath sounds, lungs clear, No chest tenderness, No respiratory distress Cardiovascular: regular rate/rhythm, capillary refill <2 sec, No murmur, No pulse deficit Gastrointestinal: soft, No tenderness, No distention, No mass Back Exam: normal inspection, normal range of motion, other (recent surgical scar), No CVA tenderness, No vertebral tenderness Extremity Exam: normal inspection, normal range of motion, pelvis stable, No tenderness Mental Status: alert, oriented x 3, cooperative high school history teacher Exam: normal speech, PERRL, No facial droop Coordination/Gait: normal finger to nose Motor/Sensory: no motor deficit, no sensory deficit, no pronator drift Skin Exam: normal color, warm, dry, No rash SpO2: 87 - Course Nursing assessment & vital signs reviewed: Yes - Radiology Exams Chest X-ray Interpretation: Reviewed by me Ordered Tests: Active Orders 24 hr Category Date Time Status Vinyl Cutter STAT Care 02/10/20 17:50 Active EKG-ER Only STAT Care 02/10/20 18:03 Active [place] [Catheter-[place]] STAT Care 02/10/20 17:50 Active IV Insertion STAT Care 02/10/20 17:50 Active IV Insertion-2nd Peripheral STAT Care 02/10/20 17:50 Active CHEST 1 VIEW (PORTABLE) Stat Exams 02/10/20 18:18 Taken CBC W DIFF Stat Lab 02/10/20 18:05 Completed CMP Stat Lab 02/10/20 18:05 Completed CULTURE,URINE Stat Lab 02/10/20 18:05 Received Manual Differential NC Stat Lab 02/10/20 18:05 Completed TROPONIN Q3H Lab 02/10/20 18:08 Completed TROPONIN Q3H Lab 02/10/20 21:15 Ordered TROPONIN Q3H Lab 02/11/20 00:15 Ordered TROPONIN Q3H Lab 02/11/20 03:15 Ordered TROPONIN Q3H Lab 02/11/20 06:15 Ordered UA W/RFX UR CULTURE Stat Lab 02/10/20 18:05 Completed Urine Triage Profile Stat Lab 02/10/20 18:05 Completed Medication Summary Generic Name Dose Route Start Last Admin Trade Name Freq PRN Reason Stop Dose Admin Sodium Chloride 1,000 mls @ 999 mls/hr 02/10/20 18:01 02/10/20 18:06 Sodium Chloride 0.9% 1000 Ml IV 02/10/20 19:01 999 mls/hr .Q1H1M STA Administration Discontinued Medications Generic Name Dose Route Start Last Admin Trade Name Freq PRN Reason Stop Dose Admin Sodium Chloride Confirm 02/10/20 18:05 Sodium Chloride 0.9% 1000 Ml Administered 02/10/20 18:06 Dose 1,000 mls @ ud .ROUTE .STK-MED ONE Lab/Rad Data: Laboratory Result Diagrams 02/10/20 18:05 02/10/20 18:05 Laboratory Results 02/10/20 02/10/20 02/10/20 Range/Units 18:08 18:05 18:05 WBC (4.0-10.5) K/mm3 RBC (4.1-5.6) M/mm3 Hgb (12.5-18.0) gm/dl Hct (42-50) % MCV (78-100) fl MCH (26-32) pg MCHC (32-36) g/dl RDW (11.5-14.0) % Plt Count (150-450) K/mm3 MPV (7.5-11.0) fl Sodium (137-145) mmol/L Potassium (3.5-5.1) mmol/L Chloride (98-107) mmol/L Carbon Dioxide (22-30) mmol/L Anion Gap (5-15) MEQ/L BUN (9-20) mg/dL Creatinine (0.66-1.25) mg/dL Estimated GFR ML/MIN Glucose (74-106) mg/dL Calcium (8.4-10.2) mg/dL Total Bilirubin (0.2-1.3) mg/dL AST (17-59) U/L ALT (0-50) U/L Alkaline Phosphatase (38-126) U/L Troponin I 0.025 (0.000-0.034) ng/mL Serum Total Protein (6.3-8.2) g/dL Albumin (3.5-5.0) g/dL Urine Color YELLOW (YELLOW) Urine Appearance CLEAR (CLEAR) Urine pH 5.0 (5-6) Ur Specific [place] 1.011 (1.005-1.025) Urine Protein NEGATIVE (Negative) Urine Ketones NEGATIVE (NEGATIVE) Urine Blood NEGATIVE (0-5) Brant/ul Urine Nitrite NEGATIVE (NEGATIVE) Urine Bilirubin NEGATIVE (NEGATIVE) Urine Urobilinogen NEGATIVE (0-1) mg/dL Ur Leukocyte Esterase NEGATIVE (NEGATIVE) Urine WBC (Auto) NONE (0-5) /HPF Urine RBC (Auto) NONE SEEN (0-2) /HPF U Hyaline Cast (Auto) 6-10 (0-2) /LPF U Epithel Cells (Auto) RARE (FEW) /HPF Urine Bacteria (Auto) NONE (NEGATIVE) /HPF Urine Mucus (Auto) SLIGHT (NEGATIVE) /HPF Urine Culture Reflexed ORDERED SEPARATELY (NO) Urine Glucose NEGATIVE (NEGATIVE) mg/dL Urine Opiates Level POSITIVE (NEGATIVE) Ur Methadone NEGATIVE (NEGATIVE) Urine Barbiturates NEGATIVE (NEGATIVE) Ur Phencyclidine (PCP) NEGATIVE (NEGATIVE) Urine Amphetamine NEGATIVE (NEGATIVE) U Benzodiazepine Level POSITIVE (NEGATIVE) Urine Cocaine NEGATIVE (NEGATIVE) Urine Marijuana (THC) NEGATIVE (NEGATIVE) 02/10/20 02/10/20 Range/Units 18:05 18:05 WBC 13.9 H (4.0-10.5) K/mm3 RBC 4.30 (4.1-5.6) M/mm3 Hgb 11.0 L (12.5-18.0) gm/dl Hct 37.8 L (42-50) % MCV 87.9 (78-100) fl MCH 25.6 L (26-32) pg MCHC 29.1 L (32-36) g/dl RDW 15.7 H (11.5-14.0) % Plt Count 330 (150-450) K/mm3 MPV 11.0 (7.5-11.0) fl Sodium 137 (137-145) mmol/L Potassium 4.6 (3.5-5.1) mmol/L Chloride 96 L (98-107) mmol/L Carbon Dioxide 32 H (22-30) mmol/L Anion Gap 13.6 (5-15) MEQ/L BUN 49 H (9-20) mg/dL Creatinine 2.38 H (0.66-1.25) mg/dL Estimated GFR 28.9 ML/MIN Glucose 59 L (74-106) mg/dL Calcium 10.0 (8.4-10.2) mg/dL Total Bilirubin 0.50 (0.2-1.3) mg/dL AST 31 (17-59) U/L ALT 31 (0-50) U/L Alkaline Phosphatase 119 (38-126) U/L Troponin I (0.000-0.034) ng/mL Serum Total Protein 7.6 (6.3-8.2) g/dL Albumin 4.3 (3.5-5.0) g/dL Urine Color (YELLOW) Urine Appearance (CLEAR) Urine pH (5-6) Ur Specific [place] (1.005-1.025) Urine Protein (Negative) Urine Ketones (NEGATIVE) Urine Blood (0-5) Brant/ul Urine Nitrite (NEGATIVE) Urine Bilirubin (NEGATIVE) Urine Urobilinogen (0-1) mg/dL Ur Leukocyte Esterase (NEGATIVE) Urine WBC (Auto) (0-5) /HPF Urine RBC (Auto) (0-2) /HPF U Hyaline Cast (Auto) (0-2) /LPF U Epithel Cells (Auto) (FEW) /HPF Urine Bacteria (Auto) (NEGATIVE) /HPF Urine Mucus (Auto) (NEGATIVE) /HPF Urine Culture Reflexed (NO) Urine Glucose (NEGATIVE) mg/dL Urine Opiates Level (NEGATIVE) Ur Methadone (NEGATIVE) Urine Barbiturates (NEGATIVE) Ur Phencyclidine (PCP) (NEGATIVE) Urine Amphetamine (NEGATIVE) U Benzodiazepine Level (NEGATIVE) Urine Cocaine (NEGATIVE) Urine Marijuana (THC) (NEGATIVE) - Departure Departure Disposition: Home Clinical Impression: Hypotensive syncope, Acute urinary retention, Renal insufficiency Elevated white blood cell count Qualifiers: Leukocytosis type: unspecified Qualified Code(s): D72.829 - Elevated white blood cell count, unspecified Condition: Stable Critical Care Time: No Referrals: [facility] [Primary Care Provider] - Instructions: Preventing Falls, Urinary Retention (DC) Additional Instructions: Discharge/Care Plan INDERJIT LONG was seen on 02/10/20 in the Emergency Room. The patient was counseled regarding Diagnosis,Lab results, Imaging studies, need for follow up and when to return to the Emergency Room. Prescriptions given: Discharge Note I have spoken with the patient and/or caregivers. I have explained the patient's condition, diagnosis and treatment plan based on the information available to me at this time. I have answered the patient's and/or caregiver's questions and addressed any concerns. The patient and/or caregivers have as good understanding of the patient's diagnosis, condition and treatment plan as can be expected at this point. The vital signs have been stable. The patient's condition is stable and appropriate for discharge from the emergency department. The patient will pursue further outpatient evaluation with the primary care physician or other designated or consulting physician as outlined in the discharge instructions. The patient and/or caregivers are agreeable to this plan of care and follow-up instructions have been explained in detail. The patient and/or caregivers have received these instruction. The patient/and or caregivers are aware that any significant change in condition or worsening of symptoms should prompt an immediate return to this or the closest emergency department or call 911. INDERJIT LONG was seen on 02/10/20 n the Emergency Room. At that time you were treated for an emergent condition, during your visit Laboratory, Radiology and/or other procedures may have been ordered. It is very important that you follow-up with your Primary Care Physician [facility] within the next 24-48 hours to review your Emergency Room visit and the final results of testing that was ordered. Some test results such as Urine Cultures, Blood Cultures, and other cultures if ordered will not be finalized for 24-48 hours. If you do not have a Primary Care Provider please call the medical records department at [phone] ext [phone] to obtain a copy of your results or you may sign into our patient portal to obtain these results by visiting us @ [email or web address] and completing the following steps: 1. Click on the Patient Portal link 2. Click the Patient Self Enrollment Link to complete the enrollment form and entering your 3. Once the enrollment form is completed you will receive an email with a temporary ID and password at the email address you provided. 4. Next choose a user name and password. Your user name must be at least 4 characters long and your password must be at least 4 characters long. 5. Choose a security question from the list and provide your answer to the question. If you already have signed into the Health Portal you may access your Health Care Information 15/11 by the following steps: 1. Login to our website @ [email or web address] 2. Enter your original user name and password. FAQS The [facility] Health Portal is an online tool that contains your Lab Results, R adiology Reports, Visit History, Discharge Instructions and Health Summary Lab and Radiology Results will not be available for 72 hours on the portal. The Portal is a secure site, passwords are encryted and URLs are re-written so they cannot be copied and pasted. You and authorized family members are the only ones who can access your Portal. Also there is a timeout feature that protects your information if you leave the Portal page open. If you have technical difficulty please use the Contact Us link on the page this will allow you to submit any questions you have regarding the Portal or you may contact the Medical Record Department at [phone] ext [phone]. Hold Lisinopril for 3 days Prescriptions: Smz/Tmp Ds Tablet [Bactrim Ds Tablet] 1 udtab PO BID #20 tablet
[2020-02-10] MEDS ORDERED: Sodium Chloride 0.9% 1000 ML 1,000 ML ONE (18:05)
[2020-02-10 18:08] LABS: Hematocrit 37.8 % (42-50); Mean Cell Volume 87.9 fl (78-100); Mean Corpuscular Hemoglobin 25.6 pg (26-32); Mean Corpuscular Hgb Concent. 29.1 g/dl (32-36); Platelet Count 330 K/mm3 (150-450); Red Cell Distribution Width 15.7 % (11.5-14.0); White Blood Count 13.9 K/mm3 (4.0-10.5)
[2020-02-10 18:14] LABS: ALBUMIN 4.3 g/dL (3.5-5.0); ANION GAP 13.6 MEQ/L (5-15); Appearance CLEAR (CLEAR); BILIRUBIN,TOTAL 0.5 mg/dL (0.2-1.3); Bilirubin NEGATIVE (NEGATIVE); Blood NEGATIVE Ery/ul (0-5); Creatinine 1 2.38 mg/dL (0.66-1.25); EST GLOMERULAR FILTRATION RATE 28.9 ML/MIN; Epithelial Cells RARE /HPF (FEW); Glucose NEGATIVE (NEGATIVE); Ketones NEGATIVE (NEGATIVE); Leukocyte Esterase NEGATIVE (NEGATIVE); Mucus SLIGHT /HPF (NEGATIVE); Nitrite NEGATIVE (NEGATIVE); Potassium 4.6 mmol/L (3.5-5.1); Protein,Urine Dip NEGATIVE (Negative); Specific Gravity 1.011 (1.005-1.025); Total Protein 7.6 g/dL (6.3-8.2); Urobilinogen NEGATIVE mg/dL (0-1)
[2020-02-10 18:15] LABS: RBC NONE SEEN /HPF (0-2)
[2020-02-10 18:25] LABS: Amphetamine,Urine NEGATIVE (NEGATIVE); Barbiturate,Urine NEGATIVE (NEGATIVE); Benzodiazepine,Urine POSITIVE (NEGATIVE); Cocaine,Urine NEGATIVE (NEGATIVE); Methadone,Urine NEGATIVE (NEGATIVE); Opiate,Urine POSITIVE (NEGATIVE); PCP,Urine NEGATIVE (NEGATIVE); THC,Urine NEGATIVE (NEGATIVE)
[2020-02-10 19:00] LABS: BAND 2 % (0.0-2.0); Eosinophil 4 % (0.00-3.0); Lymphocytes 23 % (24-44); Monocyte 11 % (0.0-12.0); Neutrophils 60 % (36.-66.); Platelet Estimate NORMAL (NORMAL); Total Cells Counted 100
[2020-02-10 19:01] LABS: Hypochromia 1+
[2020-02-10 20:09] VITALS: BP 92/48; PULSE 66; O2SAT 94
--- NOTE | 2020-02-11 08:48 | XRAY ---
Indication: Status post fall. Hypotension. Comparison: February 04, 2020. Portable apical lordotic chest less inflated and grossly unchanged again demonstrating minimal left base atelectasis/scarring, borderline cardiomegaly, and calcified granulomas. No new/acute findings.
== END 2020-02-10 20:26 | disposition home or self-care (01) ==
LOC: ED 17:24
DX: R55 Syncope and collapse (principal); I95.9 Hypotension, unspecified; R33.9 Retention of urine, unspecified; N28.9 Disorder of kidney and ureter, unspecified; D72.829 Elevated white blood cell count, unspecified; Z79.899 Other long term (current) drug therapy; I10 Essential (primary) hypertension; E11.9 Type 2 diabetes mellitus without complications; J44.9 Chronic obstructive pulmonary disease, unspecified; I25.2 Old myocardial infarction; G47.30 Sleep apnea, unspecified; F51.9 Sleep disorder not due to a substance or known physiological condition, unspecified; K21.9 Gastro-esophageal reflux disease without esophagitis
CPT/HCPCS: 36000; 36415; 51702; 71045; 80053; 80307; 81001; 84484; 85025; 87086; 93005; 93041; 96360; 99285

== ENCOUNTER 2020-02-18 10:06 | Emergency (ER) | payer OTHER ==
[2020-02-18 10:25] VITALS: O2SAT 95
[2020-02-18] MEDS ORDERED: Sodium Chloride 0.9% 1000 ML 1,000 ML IV SCH (10:45)
[2020-02-18 10:54] LABS: BASOPHIL % 0.4 % (0.0-0.4); Basophil (Absolute #) 0.03 (0-0.4); Eosinophil % 4.1 % (0.00-5.0); Eosinophil (Absolute #) 0.32 (0-0.5); Hematocrit 31.1 % (42-50); Hemoglobin 9.3 gm/dl (12.5-18.0); Lymphocyte (Absolute #) 1.15 (1.0-4.6); Lymphocytes % 14.6 % (24.0-44.0); Mean Cell Volume 86.4 fl (78-100); Mean Corpuscular Hemoglobin 25.8 pg (26-32); Mean Corpuscular Hgb Concent. 29.9 g/dl (32-36); Mean Platelet Volume 10.2 fl (7.5-11.0); Monocyte (Absolute #) 0.99 (0.0-1.3); Monocytes % 12.5 % (0.0-12.0); Neutrophil % 68.4 % (36.0-66.0); Platelet Count 185 K/mm3 (150-450); Red Cell Distribution Width 15.8 % (11.5-14.0); White Blood Count 7.9 K/mm3 (4.0-10.5)
--- NOTE | 2020-02-18 10:54 | ERPHSYRPT ---
- History of Present Illness Time Seen by Provider: 02/18/20 10:20 Source: patient Exam Limitations: no limitations Patient Subjective Stated Complaint: Pt got out of bed this AM and stepped on tubing of catheter and yanked it out Triage Nursing Assessment: Pt brought in by EMS, pt stated that he has not been taking any of his medications for the past 2 weeks, pt reports that they make him sick, hypertensive, no edema, pulses normal, denies any pain Physician History: This patient is a 69-year-old [facility] with a history of hypertension, chronic renal insufficiency, COPD, diabetes, coronary artery dis ease and chronic anemia who was seen in this emergency department on 02/10/2020 and diagnosed with acute urinary retention and a Paris catheter was placed. Patient states that he has been very weak wheezy and short of breath. He is not thriving well because he is not able to swallow food or liquids well. He has no chest pain. Patient states his living conditions are not the best. His is unable to care for him adequately per his report. Patient was weak and tripped over his Paris catheter and pulled it out accidentally. Patient had significant bleeding from his penis. Ambulance was contacted and patient was brought into the emergency department via EMS. Patient also states that he has not been eating or drinking well in the last 2 weeks. He has not been taking his medications because of difficulty swallowing. Severity: moderate Associated Symptoms: shortness of breath, loss of appetite, weakness, No cough, No chills, No chest pain, No fever Allergies/Adverse Reactions: ginseng Allergy (Verified 02/18/20 10:24) Penicillins Allergy (Verified 02/18/20 10:24) Home Medications: Albuterol Sulfate [Proventil Hfa] 6.7 gm IH Q6HPRN PRN 03/21/13 [History] Aspirin EC 325 mg [Ecotrin 325 MG] 325 mg PO DAILY 03/21/13 [History] Atenolol [Tenormin] 25 mg PO DAILY 03/21/13 [History] Budesonide/Formoterol Fumarate [Symbicort 160-4.5 Mcg Inhaler] 6 gm IH BID 03/21/13 [History] Gabapentin 900 mg PO TID 03/21/13 [History] Lisinopril 10 mg [Zestril 10 MG] 10 mg PO DAILY 03/21/13 [History] PANTOPRAZOLE 40 mg Tablet [Protonix 40MG Tablet] 40 mg PO BID 03/21/13 [History] Venlafaxine HCl [Venlafaxine HCl ER] 225 mg PO DAILY 03/21/13 [History] Ascorbic Acid [Vitamin C] 1,000 mg PO BID 03/11/16 [History] Atorvastatin Calcium 40 mg PO HS 03/11/16 [History] Calcium Polycarbophil 625 mg PO DAILY 03/11/16 [History] Cholecalciferol (Vitamin D3) [Vitamin D3] 1,000 unit PO BID 03/11/16 [History] Cyanocobalamin (Vitamin B-12) [Cyanocobalamin] 1,000 mcg PO DAILY 03/11/16 [History] Docusate Sodium [Stool Softener] 50 mg PO BID 03/11/16 [History] Hydrocodone/Acetaminophen [Hydrocodon-Acetaminophen 5-325] 1 each PO BID PRN 03/11/16 [History] Naproxen Sodium 500 mg PO BID 03/11/16 [History] Potassium Gluconate 595 mg PO BID 03/11/16 [History] Sennosides 8.6 mg PO BID 03/11/16 [History] Trazodone HCl 100 mg PO HS 03/11/16 [History] hydrOXYzine pamoate [Hydroxyzine Pamoate] 50 mg PO HS 03/11/16 [History] Hx Tetanus, Diphtheria Vaccination/Date Given: No (unknown) Hx Influenza Vaccination/Date Given: No (unknown) Hx Pneumococcal Vaccination/Date Given: No (unknown) Travel Risk - International Travel Have you traveled outside of the country in past 3 weeks: No - Coronavirus Screening Are you exhibiting any of the following symptoms?: No Close contact with a COVID-19 positive Pt in past 14-21 Days: No - Review of Systems Constitutional: Weakness Eyes: No Symptoms Ears, Nose, & Throat: No Symptoms Respiratory: Dyspnea, Dyspnea on Exertion (DANIELLE), Wheezing Cardiac: No Symptoms Abdominal/Gastrointestinal: No Symptoms Genitourinary Symptoms: No Symptoms Musculoskeletal: No Symptoms Skin: No Symptoms Neurological: No Symptoms Psychological: No Symptoms Endocrine: No Symptoms Hematologic/Lymphatic: No Symptoms Immunological/Allergic: No Symptoms All Other Systems: Reviewed and Negative - Past Medical History Pertinent Past Medical History: Yes Neurological History: No Pertinent History ENT History: No Pertinent History Cardiac History: High Cholesterol, Hypertension, Myocardial Infarction ([place]) Respiratory History: COPD, Emphysema, Sleep Apnea Endocrine Medical History: Diabetes Type II Musculoskeletal History: Degenerative Disk Disease, Osteoarthritis, Other GI Medical History: GERD History: No Pertinent History Psycho-Social History: Depression Male Reproductive Disorders: No Pertinent History - Past Surgical History Past Surgical History: Yes Neuro Surgical History: No Pertinent History Cardiac: Cardiac Catheterization, Cardiac Stent Respiratory: No Pertinent History Gastrointestinal: No Pertinent History Genitourinary: No Pertinent History Male Surgical History: No Pertinent History Other Surgical History: back surgery. trigger finger - Social History Smoking Status: Former smoker Exposure to second hand smoke: Yes Drug Use: none Patient Lives Alone: No - Nursing Vital Signs Nursing Vital Signs: Initial Vital Signs Temperature 98.2 F 02/18/20 10:17 Pulse Rate 98 H 02/18/20 10:17 Blood Pressure 172/75 02/18/20 10:17 O2 Sat by Pulse Oximetry 95 02/18/20 10:17 Pain Scale Pain Intensity 0 - Physical Exam General Appearance: mild distress, alert, anxiety Eye Exam: PERRL/EOMI, eyes nml inspection Ears, Nose, Throat Exam: normal ENT inspection, dry mucous membranes Neck Exam: normal inspection, non-tender, supple, full range of motion Respiratory Exam: normal breath sounds, lungs clear, airway intact, No chest tenderness, No respiratory distress Cardiovascular Exam: regular rate/rhythm, normal heart sounds, normal peripheral pulses Gastrointestinal/Abdomen Exam: soft, normal bowel sounds, No tenderness Rectal Exam: not done Back Exam: normal inspection, normal range of motion, No CVA tenderness, No vertebral tenderness Extremity Exam: normal inspection, normal range of motion, pelvis stable Neurologic Exam: alert, oriented x 3, cooperative, logistics supervisor II-XII nml as tested, normal mood/affect, sensation nml Skin Exam: normal color, warm, dry Lymphatic Exam: No adenopathy SpO2 Interpretation: normal SpO2: 95 O2 Delivery: Room Air - Course Nursing assessment & vital signs reviewed: Yes Ordered Tests: Active Orders 24 hr Category Date Time Status Dip Guider Stoves STAT Care 02/18/20 10:44 Active EKG-ER Only STAT Care 02/18/20 10:43 Active Paris [Catheter-Horse Shoe [place]] STAT Care 02/18/20 10:10 Active IV Insertion STAT Care 02/18/20 10:43 Active Pulse Oximetry (ED) STAT Care 02/18/20 10:43 Active CHEST 1 VIEW (PORTABLE) Stat Exams 02/18/20 10:43 Completed CBC W DIFF Stat Lab 02/18/20 10:52 Completed CMP Stat Lab 02/18/20 10:52 Completed CULTURE,URINE Stat Lab 02/18/20 14:00 Received Lactic Acid Stat Lab 02/18/20 11:05 Completed MAGNESIUM Stat Lab 02/18/20 10:52 Completed NT PRO BNP Stat Lab 02/18/20 10:52 Completed PROTIME WITH INR Stat Lab 02/18/20 10:52 Completed TROPONIN Q3H Lab 02/18/20 10:52 Completed TROPONIN Q3H Lab 02/18/20 13:50 Completed TROPONIN Q3H Lab 02/18/20 16:45 Ordered TROPONIN Q3H Lab 02/18/20 19:45 Ordered TROPONIN Q3H Lab 02/18/20 22:45 Ordered UA W/RFX UR CULTURE Stat Lab 02/18/20 12:54 Completed Medication Summary Generic Name Dose Route Start Last Admin Trade Name Freq PRN Reason Stop Dose Admin Sodium Chloride 1,000 mls @ 100 mls/hr 02/18/20 10:45 02/18/20 12:36 Sodium Chloride 0.9% 1000 Ml IV 03/19/20 10:44 100 mls/hr .Q10H MEIR Administration Magnesium Oxide 400 mg 02/19/20 13:33 02/18/20 14:00 Mag-Ox 400 PO 02/19/20 13:34 400 mg STAT ONE Administration Discontinued Medications Generic Name Dose Route Start Last Admin Trade Name Freq PRN Reason Stop Dose Admin Insulin Human Regular 5 unit 02/18/20 14:56 02/18/20 15:01 Humulin R IV 02/18/20 14:57 5 unit STAT ONE Administration Insulin Human Regular Confirm 02/18/20 15:00 Humulin R Administered 02/18/20 15:01 Dose 5 unit .ROUTE .STK-MED ONE Magnesium Oxide Confirm 02/18/20 13:58 Mag-Ox 400 Administered 02/18/20 13:59 Dose 400 mg .ROUTE .STK-MED ONE Ondansetron HCl 4 mg 02/18/20 13:46 02/18/20 14:01 Zofran 4 Mg/2 Ml Vial IV 02/18/20 13:47 4 mg STAT ONE Administration Ondansetron HCl Confirm 02/18/20 13:58 Zofran 4 Mg/2 Ml Vial Administered 02/18/20 13:59 Dose 4 mg .ROUTE .STK-MED ONE Lab/Rad Data: Laboratory Result Diagrams 02/18/20 10:52 02/18/20 10:52 Laboratory Results 02/18/20 02/18/20 02/18/20 Range/Units 13:50 12:54 11:05 WBC (4.0-10.5) K/mm3 RBC (4.1-5.6) M/mm3 Hgb (12.5-18.0) gm/dl Hct (42-50) % MCV (78-100) fl MCH (26-32) pg MCHC (32-36) g/dl RDW (11.5-14.0) % Plt Count (150-450) K/mm3 MPV (7.5-11.0) fl Gran % (36.0-66.0) % Eos # (Auto) (0-0.5) Absolute Lymphs (auto) (1.0-4.6) Absolute Monos (auto) (0.0-1.3) Lymphocytes % (24.0-44.0) % Monocytes % (0.0-12.0) % Eosinophils % (0.00-5.0) % Basophils % (0.0-0.4) % Absolute Granulocytes (1.4-6.9) Basophils # (0-0.4) PT (8.83-12.87) SECONDS INR (0.8-3.0) Sodium (137-145) mmol/L Potassium (3.5-5.1) mmol/L Chloride (98-107) mmol/L Carbon Dioxide (22-30) mmol/L Anion Gap (5-15) MEQ/L BUN (9-20) mg/dL Creatinine (0.66-1.25) mg/dL Estimated GFR ML/MIN Glucose (74-106) mg/dL Lactic Acid 1.7 (0.4-2.0) Calcium (8.4-10.2) mg/dL Magnesium (1.6-2.3) mg/dL Total Bilirubin (0.2-1.3) mg/dL AST (17-59) U/L ALT (0-50) U/L Alkaline Phosphatase (38-126) U/L Troponin I 0.013 (0.000-0.034) ng/mL NT-Pro-B Natriuret Pep (0-900) pg/mL Serum Total Protein (6.3-8.2) g/dL Albumin (3.5-5.0) g/dL Urine Color YELLOW (YELLOW) Urine Appearance SLIGHTLY CLOUDY (CLEAR) Urine pH 6.0 (5-6) Ur Specific [place] 1.018 (1.005-1.025) Urine Protein 100 (Negative) Urine Ketones NEGATIVE (NEGATIVE) Urine Blood LARGE (0-5) Brant/ul Urine Nitrite NEGATIVE (NEGATIVE) Urine Bilirubin NEGATIVE (NEGATIVE) Urine Urobilinogen NEGATIVE (0-1) mg/dL Ur Leukocyte Esterase NEGATIVE (NEGATIVE) Urine WBC (Auto) 11-15 (0-5) /HPF Urine RBC (Auto) >101 (0-2) /HPF U Epithel Cells (Auto) NONE (FEW) /HPF Urine Bacteria (Auto) RARE (NEGATIVE) /HPF Urine Mucus (Auto) SLIGHT (NEGATIVE) /HPF Urine Culture Reflexed YES (NO) Urine Glucose >=500 (NEGATIVE) mg/dL 02/18/20 02/18/20 02/18/20 Range/Units 10:52 10:52 10:52 WBC (4.0-10.5) K/mm3 RBC (4.1-5.6) M/mm3 Hgb (12.5-18.0) gm/dl Hct (42-50) % MCV (78-100) fl MCH (26-32) pg MCHC (32-36) g/dl RDW (11.5-14.0) % Plt Count (150-450) K/mm3 MPV (7.5-11.0) fl Gran % (36.0-66.0) % Eos # (Auto) (0-0.5) Absolute Lymphs (auto) (1.0-4.6) Absolute Monos (auto) (0.0-1.3) Lymphocytes % (24.0-44.0) % Monocytes % (0.0-12.0) % Eosinophils % (0.00-5.0) % Basophils % (0.0-0.4) % Absolute Granulocytes (1.4-6.9) Basophils # (0-0.4) PT 14.5 H (8.83-12.87) SECONDS INR 1.28 (0.8-3.0) Sodium 134 L (137-145) mmol/L Potassium 4.9 (3.5-5.1) mmol/L Chloride 98 (98-107) mmol/L Carbon Dioxide 30 (22-30) mmol/L Anion Gap 10.5 (5-15) MEQ/L BUN 15 (9-20) mg/dL Creatinine 1.11 (0.66-1.25) mg/dL Estimated GFR > 60.0 ML/MIN Glucose 322 H (74-106) mg/dL Lactic Acid (0.4-2.0) Calcium 9.3 (8.4-10.2) mg/dL Magnesium 1.4 L (1.6-2.3) mg/dL Total Bilirubin 0.60 (0.2-1.3) mg/dL AST 19 (17-59) U/L ALT 17 (0-50) U/L Alkaline Phosphatase 118 (38-126) U/L Troponin I 0.012 (0.000-0.034) ng/mL NT-Pro-B Natriuret Pep 286 (0-900) pg/mL Serum Total Protein 6.9 (6.3-8.2) g/dL Albumin 3.9 (3.5-5.0) g/dL Urine Color (YELLOW) Urine Appearance (CLEAR) Urine pH (5-6) Ur Specific [place] (1.005-1.025) Urine Protein (Negative) Urine Ketones (NEGATIVE) Urine Blood (0-5) Brant/ul Urine Nitrite (NEGATIVE) Urine Bilirubin (NEGATIVE) Urine Urobilinogen (0-1) mg/dL Ur Leukocyte Esterase (NEGATIVE) Urine WBC (Auto) (0-5) /HPF Urine RBC (Auto) (0-2) /HPF U Epithel Cells (Auto) (FEW) /HPF Urine Bacteria (Auto) (NEGATIVE) /HPF Urine Mucus (Auto) (NEGATIVE) /HPF Urine Culture Reflexed (NO) Urine Glucose (NEGATIVE) mg/dL 26/20 Range/Units 10:52 WBC 7.9 (4.0-10.5) K/mm3 RBC 3.60 L (4.1-5.6) M/mm3 Hgb 9.3 L (12.5-18.0) gm/dl Hct 31.1 L (42-50) % MCV 86.4 (78-100) fl MCH 25.8 L (26-32) pg MCHC 29.9 L (32-36) g/dl RDW 15.8 H (11.5-14.0) % Plt Count 185 (150-450) K/mm3 MPV 10.2 (7.5-11.0) fl Gran % 68.4 H (36.0-66.0) % Eos # (Auto) 0.32 (0-0.5) Absolute Lymphs (auto) 1.15 (1.0-4.6) Absolute Monos (auto) 0.99 (0.0-1.3) Lymphocytes % 14.6 L (24.0-44.0) % Monocytes % 12.5 H (0.0-12.0) % Eosinophils % 4.1 (0.00-5.0) % Basophils % 0.4 (0.0-0.4) % Absolute Granulocytes 5.40 (1.4-6.9) Basophils # 0.03 (0-0.4) PT (8.83-12.87) SECONDS INR (0.8-3.0) Sodium (137-145) mmol/L Potassium (3.5-5.1) mmol/L Chloride (98-107) mmol/L Carbon Dioxide (22-30) mmol/L Anion Gap (5-15) MEQ/L BUN (9-20) mg/dL Creatinine (0.66-1.25) mg/dL Estimated GFR ML/MIN Glucose (74-106) mg/dL Lactic Acid (0.4-2.0) Calcium (8.4-10.2) mg/dL Magnesium (1.6-2.3) mg/dL Total Bilirubin (0.2-1.3) mg/dL AST (17-59) U/L ALT (0-50) U/L Alkaline Phosphatase (38-126) U/L Troponin I (0.000-0.034) ng/mL NT-Pro-B Natriuret Pep (0-900) pg/mL Serum Total Protein (6.3-8.2) g/dL Albumin (3.5-5.0) g/dL Urine Color (YELLOW) Urine Appearance (CLEAR) Urine pH (5-6) Ur Specific [place] (1.005-1.025) Urine Protein (Negative) Urine Ketones (NEGATIVE) Urine Blood (0-5) Brant/ul Urine Nitrite (NEGATIVE) Urine Bilirubin (NEGATIVE) Urine Urobilinogen (0-1) mg/dL Ur Leukocyte Esterase (NEGATIVE) Urine WBC (Auto) (0-5) /HPF Urine RBC (Auto) (0-2) /HPF U Epithel Cells (Auto) (FEW) /HPF Urine Bacteria (Auto) (NEGATIVE) /HPF Urine Mucus (Auto) (NEGATIVE) /HPF Urine Culture Reflexed (NO) Urine Glucose (NEGATIVE) mg/dL - Progress Progress: improved, re-examined Progress Note: 02/18/20 11:09 Chest x-ray shows no acute cardiopulmonary abnormalities 02/18/20 14:59 Medical decision making: This patient does not meet inpatient admission crit ember. Patient does have some chronic issues that need to be evaluated. I do not believe he meets admission criteria for the [facility]. Our plan is to provide him with a low dose of intravenous regular insulin, IV hydration and to obtain a urgent outpatient appointment for him with the [facility] in [facility]. He has had 2 normal troponin levels during his stay here. His chest x-ray shows no acute findings. His GFR is within normal limits. 02/18/20 15:12 The [place] [facility] in [facility] stated that we are to fax the emergency department visit to them. They will call the patient once they review the notes and determine a clinic appointment date and time and then contact the patient. This was discussed with the patient. Counseled pt/family regarding: lab results, diagnosis, need for follow-up, rad results - Departure Departure Disposition: Home Clinical Impression: Anemia, Difficulty swallowing, Paris catheter problem, Weakness, Failure to thrive in adult, Urinary retention Condition: Stable Critical Care Time: No Referrals: HOSPITAL,'S [Primary Care Provider] -
[2020-02-18 11:00] LABS: INR 1.28 (0.8-3.0); PROTIME 14.5 SECONDS (8.83-12.87)
--- NOTE | 2020-02-18 11:05 | XRAY ---
Indication: Wheezing. Comparison: February 10, 2020. Portable chest continues to demonstrate normal heart and lungs with incidental calcified granulomas. No new/acute findings.
[2020-02-18 11:14] LABS: ALBUMIN 3.9 g/dL (3.5-5.0); ALKALINE PHOSPHATASE 118 U/L (38-126); ANION GAP 10.5 MEQ/L (5-15); BLOOD UREA NITROGEN 15 mg/dL (9-20); CHLORIDE 98 mmol/L (98-107); Calcium 9.3 mg/dL (8.4-10.2); Carbon Dioxide 30 mmol/L (22-30); Creatinine 1 1.11 mg/dL (0.66-1.25); EST GLOMERULAR FILTRATION RATE > 60.0 ML/MIN; Glucose 322 mg/dL (74-106); MAGNESIUM 1.4 mg/dL (1.6-2.3); NT PRO BNP 286 pg/mL (0-900); Potassium 4.9 mmol/L (3.5-5.1); SGOT/AST 19 U/L (17-59); SGPT/ALT 17 U/L (0-50); SODIUM 134 mmol/L (137-145); Total Protein 6.9 g/dL (6.3-8.2)
[2020-02-18] MEDS ORDERED: Sodium Chloride 0.9% 1000 ML 1,000 ML ONE (12:32)
[2020-02-18 13:01] VITALS: PULSE 81
[2020-02-18] MEDS ORDERED: Zofran 4 MG/2 ML VIAL IV ONE (13:46)
[2020-02-18] MEDS ORDERED: Zofran 4 MG/2 ML VIAL ONE (13:58)
[2020-02-18] MEDS ORDERED: MAG-OX 400 ONE (13:58)
[2020-02-18 14:12] LABS: Appearance SLIGHTLY CLOUDY (CLEAR); Bacteria RARE /HPF (NEGATIVE); Bilirubin NEGATIVE (NEGATIVE); Blood LARGE Ery/ul (0-5); Glucose >=500 mg/dL (NEGATIVE); Ketones NEGATIVE (NEGATIVE); Leukocyte Esterase NEGATIVE (NEGATIVE); Mucus SLIGHT /HPF (NEGATIVE); Nitrite NEGATIVE (NEGATIVE); Protein,Urine Dip 100 (Negative); Specific Gravity 1.018 (1.005-1.025); Urobilinogen NEGATIVE mg/dL (0-1)
[2020-02-18 14:16] LABS: RBC >101 /HPF (0-2)
[2020-02-18] MEDS ORDERED: HUMULIN R IV ONE (14:56)
[2020-02-18 14:57] VITALS: BP 146/64
[2020-02-18] MEDS ORDERED: HUMULIN R ONE (15:00)
[2020-02-19] MEDS ORDERED: MAG-OX 400 PO ONE (13:33)
== END 2020-02-18 15:53 | disposition home or self-care (01) ==
LOC: ED 10:06
DX: R13.10 Dysphagia, unspecified (principal); T83.091A Other mechanical complication of indwelling urethral catheter, initial encounter; E11.59 Type 2 diabetes mellitus with other circulatory complications; G47.30 Sleep apnea, unspecified; F51.9 Sleep disorder not due to a substance or known physiological condition, unspecified; R62.7 Adult failure to thrive; R33.9 Retention of urine, unspecified
CPT/HCPCS: 36000; 36415; 51702; 71045; 80053; 81001; 83605; 83735; 83880; 84484; 85025; 85610; 87086; 93005; 93041; 94760; 96360; 96361; 96374; 96375; 99285; J1815; J2405; A9270-GY

== ENCOUNTER 2020-03-05 18:46 | Inpatient (IN) | payer MEDICARE, OTHER ==
[2020-03-05] MEDS ORDERED: solu-MEDROL 125 MG IV ONE (19:08)
[2020-03-05] MEDS ORDERED: DUONEB 0.5-3 MG/3 ml Neb IH ONE ×2 (19:08→19:34)
[2020-03-05] MEDS ORDERED: solu-MEDROL 125 MG ONE (19:10)
[2020-03-05 19:19] LABS: Absolute Neutrophil Ct (ANC) 4.88 (1.4-6.9); BASOPHIL % 0.4 % (0.0-0.4); Basophil (Absolute #) 0.03 (0-0.4); Eosinophil (Absolute #) 0.49 (0-0.5); Hematocrit 33.3 % (42-50); Hemoglobin 9.6 gm/dl (12.5-18.0); Lymphocyte (Absolute #) 1.79 (1.0-4.6); Lymphocytes % 21.9 % (24.0-44.0); Mean Cell Volume 84.9 fl (78-100); Mean Corpuscular Hemoglobin 24.5 pg (26-32); Mean Corpuscular Hgb Concent. 28.8 g/dl (32-36); Mean Platelet Volume 9.7 fl (7.5-11.0); Monocyte (Absolute #) 0.97 (0.0-1.3); Monocytes % 11.9 % (0.0-12.0); Neutrophil % 59.8 % (36.0-66.0); Platelet Count 289 K/mm3 (150-450); Red Blood Count 3.92 M/mm3 (4.1-5.6); White Blood Count 8.2 K/mm3 (4.0-10.5)
--- NOTE | 2020-03-05 19:28 | ERPHSYRPT ---
- History of Present Illness Source: patient Exam Limitations: no limitations Patient Subjective Stated Complaint: Hypoxia and shortness of breath starting today Triage Nursing Assessment: Patient to ED with c/o hypoxia and SOB, onset today. Upon arrival, tachypnea noted, WOB increased. 78% on RA, 98% on 2L. Lung sounds diminished in all lobes. NSR noted on EKG. A & OX3, answers questions appropriately. Skin pale, warm and dry. Audible wheezing noted. Physician History: Patient is a 69-year-old male with history of COPD who was brought in family for shortness of breath. Patient was apparently found by family and found to have oxygenation of about 78%. Patient states that he woke up this morning and started having labored breathing. He noticed significant wheezing. Home medication was not helpful. Patient is normally not on any oxygen at home. However on arrival, he was put on 2 L of nasal cannula oxygen and his saturations jumped to 96%. Nuys any fever or a productive cough. Timing/Duration: today Activities at Onset: rest Severity of Dyspnea-Max: severe Severity of Dyspnea-Current: moderate Possible Cause: frequent episodes Modifying Factors: Improves With: activity, coughing, exertion Associated Symptoms: constant, cough, chest pain/discomfort, wheezing, weakness Allergies/Adverse Reactions: ginseng Allergy (Verified 03/05/20 19:04) Penicillins Allergy (Verified 03/05/20 19:04) Home Medications: Albuterol Sulfate [Proventil Hfa] 6.7 gm IH Q6HPRN PRN 03/21/13 [History] Budesonide/Formoterol Fumarate [Symbicort 160-4.5 Mcg Inhaler] 6 gm IH BID 03/21/13 [History] Gabapentin 900 mg PO TID 03/21/13 [History] PANTOPRAZOLE 40 mg Tablet [Protonix 40MG Tablet] 40 mg PO BID 03/21/13 [History] Venlafaxine HCl [Venlafaxine HCl ER] 225 mg PO HS 03/21/13 [History] Ascorbic Acid [Vitamin C] 1,000 mg PO BID 03/11/16 [History] Atorvastatin Calcium 40 mg PO HS 03/11/16 [History] Calcium Polycarbophil 625 mg PO DAILY 03/11/16 [History] Cholecalciferol (Vitamin D3) [Vitamin D3] 1,000 unit PO BID 03/11/16 [History] Cyanocobalamin (Vitamin B-12) [Cyanocobalamin] 1,000 mcg PO DAILY 03/11/16 [History] Docusate Sodium [Stool Softener] 50 mg PO BID 03/11/16 [History] Hydrocodone/Acetaminophen [Hydrocodon-Acetaminophen 5-325] 1 each PO BID PRN 03/11/16 [History] Sennosides 8.6 mg PO BID 03/11/16 [History] Trazodone HCl 100 mg PO HS 03/11/16 [History] hydrOXYzine pamoate [Hydroxyzine Pamoate] 50 mg PO HS 03/11/16 [History] Hx Tetanus, Diphtheria Vaccination/Date Given: Yes Hx Influenza Vaccination/Date Given: Yes Hx Pneumococcal Vaccination/Date Given: Yes Immunizations Up to Date: Yes Travel Risk - International Travel Have you traveled outside of the country in past 3 weeks: No - Coronavirus Screening Symptoms: Shortness of Breath Close contact with a COVID-19 positive Pt in past 14-21 Days: No - Review of Systems Constitutional: Weakness, No Fever, No Chills Eyes: No Symptoms Ears, Nose, & Throat: No Symptoms Respiratory: Cough, Dyspnea, Wheezing Cardiac: No Chest Pain, No Edema, No Syncope Abdominal/Gastrointestinal: No Abdominal Pain, No Nausea, No Vomiting, No Diarr hea Genitourinary Symptoms: No Dysuria Musculoskeletal: No Back Pain, No Neck Pain Skin: No Rash Neurological: No Dizziness, No Focal Weakness, No Sensory Changes Psychological: No Symptoms Endocrine: No Symptoms All Other Systems: Reviewed and Negative - Past Medical History Pertinent Past Medical History: Yes Neurological History: No Pertinent History ENT History: No Pertinent History Cardiac History: High Cholesterol, Hypertension, Myocardial Infarction ([place]) Respiratory History: COPD, Emphysema, Sleep Apnea Endocrine Medical History: Diabetes Type II Musculoskeletal History: Degenerative Disk Disease, Osteoarthritis, Other GI Medical History: GERD History: No Pertinent History Psycho-Social History: Depression Male Reproductive Disorders: No Pertinent History - Past Surgical History Past Surgical History: Yes Neuro Surgical History: No Pertinent History Cardiac: Cardiac Catheterization, Cardiac Stent Respiratory: No Pertinent History Gastrointestinal: No Pertinent History Genitourinary: No Pertinent History Musculoskeletal: Other Male Surgical History: No Pertinent History Other Surgical History: back surgery. trigger finger - Social History Smoking Status: Former smoker Exposure to second hand smoke: No Drug Use: none Patient Lives Alone: No - Nursing Vital Signs Nursing Vital Signs: Initial Vital Signs Temperature 98.6 F 03/05/20 18:51 Pulse Rate 91 H 03/05/20 18:51 Respiratory Rate 24 03/05/20 18:51 Blood Pressure 160/65 03/05/20 18:51 O2 Sat by Pulse Oximetry 78 L 03/05/20 18:51 Pain Scale Pain Intensity 1 - Physical Exam General Appearance: moderate distress, alert Eye Exam: PERRL/EOMI Neck Exam: normal inspection, supple Respiratory Exam: respiratory distress (mild), diminished breath sounds, wheezing Cardiovascular/Chest Exam: normal heart sounds, regular rate/rhythm Abdominal/Gastrointestinal Exam: soft, No tenderness, No distention, No mass Extremity Exam: non-tender, normal range of motion, normal inspection, no calf tenderness, no pedal edema Neurologic Exam: alert, oriented x 3, cooperative, scroll assembler II-XII nml as tested, sensation nml, No motor deficits Skin Exam: normal color, warm, No dry SpO2 Interpretation: normal SpO2: 96 - Course Nursing assessment & vital signs reviewed: Yes EKG Interpreted by Me: Sinus Rhythm, LAFB, NORMAL INTERVALS, Right Bundle Branch Block, Non-specific ST Changes - Radiology Exams Chest X-ray Interpretation: Reviewed by me, Negative, No Pneumonia, No Infiltrates - CT Exams Chest CT Interpretation: Tele-radiologist Report, No PE Ordered Tests: Active Orders 24 hr Category Date Time Status Up With Assistance ROUTINE Activity 03/06/20 01:00 Active Boiler Cleaner STAT Care 03/05/20 18:54 Active Code Status Order ROUTINE Care 03/06/20 01:01 Active EKG-ER Only STAT Care 03/05/20 18:51 Active IV Care Q6H Care 03/06/20 01:01 Active IV Insertion STAT Care 03/05/20 18:53 Active Oxygen-ED Only Nasal Cannula 4 lpm Care 03/05/20 18:[address] in Observation ROUTINE Care 03/06/20 01:01 Active Telemetry Q6H Care 03/06/20 01:00 Active Vital Signs Q4H Care 03/06/20 01:00 Completed Heart-Healthy Diet Diet 03/06/20 Breakfast Active CHEST 1 VIEW (PORTABLE) Stat Exams 03/05/20 18:51 Taken CHEST WITH CONTRAST [CT] Stat Exams 03/05/20 21:31 Taken CBC W DIFF AM.LAB Lab 03/06/20 04:30 Completed CBC W DIFF Stat Lab 03/05/20 19:10 Completed CMP AM.LAB Lab 03/06/20 04:30 Completed CMP Stat Lab 03/05/20 19:10 Completed CULTURE,URINE Stat Lab 03/05/20 19:19 Received D-DIMER QUANTITATIVE Stat Lab 03/05/20 20:00 Completed Lactic Acid Stat Lab 03/05/20 18:53 Completed MAGNESIUM Stat Lab 03/05/20 19:10 Completed Manual Differential NC Routine Lab 03/06/20 04:30 Completed NT PRO BNP Stat Lab 03/05/20 19:10 Completed PROTIME WITH INR Stat Lab 03/05/20 19:10 Completed PTT Stat Lab 03/05/20 19:10 Completed TROPONIN Q3H Lab 03/05/20 19:10 Completed TROPONIN Q3H Lab 03/05/20 23:00 Completed TROPONIN Q3H Lab 03/06/20 01:30 Completed TROPONIN Q3H Lab 03/06/20 04:30 Completed TROPONIN Q3H Lab 03/06/20 07:00 Ordered UA W/RFX UR CULTURE Stat Lab 03/05/20 19:19 Completed Oxygen Oxymask LPM 2 lpm RT 03/06/20 01:00 Completed Respiratory Therapy Assessment DAILY RT 03/05/20 19:44 Active Medication Summary Generic Name Dose Route Start Last Admin Trade Name Freq PRN Reason Stop Dose Admin Acetaminophen 650 mg 03/06/20 01:00 Tylenol 325 Mg PO 04/05/20 00:59 Q4H PRN PRN PAIN AND/OR FEVER Albuterol/Ipratropium 3 ml 03/06/20 01:00 03/06/20 01:12 Duoneb 0.5-3 Mg/3 Ml Neb IH 04/05/20 00:59 3 ml Q4HPRN PRN Administration SHORTNESS OF BREATH/WHEEZING Albuterol/Ipratropium 3 ml 03/06/20 07:00 Duoneb 0.5-3 Mg/3 Ml Neb IH 04/05/20 06:59 Q6HRT MEIR Magnesium Sulfate/Dextrose 100 mls @ 100 mls/hr 03/05/20 20:30 03/05/20 22:32 Magnesium 1 Gm / 100 Ml D5w IV 03/05/20 22:29 100 mls/hr Q1H MEIR Administration Sodium Chloride 1,000 mls @ 100 mls/hr 03/06/20 01:00 03/06/20 02:00 Sodium Chloride 0.9% 1000 Ml IV 04/05/20 00:59 100 mls/hr .Q10H MEIR Administration Ondansetron HCl 4 mg 03/06/20 01:00 Zofran 4 Mg/2 Ml Vial IV 04/05/20 00:59 Q6H PRN PRN NAUSEA/VOMITING Fluticasone/Salmeterol 2 puff 03/06/20 07:00 Advair Hfa 230/21 Mcg Common Canister* IH 04/05/20 06:59 BIDRT MEIR Discontinued Medications Generic Name Dose Route Start Last Admin Trade Name Freq PRN Reason Stop Dose Admin Albuterol/Ipratropium 3 ml 03/05/20 19:08 03/05/20 19:35 Duoneb 0.5-3 Mg/3 Ml Neb IH 03/05/20 19:09 3 ml STAT ONE Administration Albuterol/Ipratropium Confirm 03/05/20 19:34 Duoneb 0.5-3 Mg/3 Ml Neb Administered 03/05/20 19:35 Dose 3 ml IH .STK-MED ONE Magnesium Sulfate 2 gm 03/05/20 20:00 03/05/20 20:30 Magnesium Sulfate 1 Gm/2 Ml Vial IV 03/05/20 20:01 Not Given NOW ONE Methylprednisolone Sodium Succinate 125 mg 03/05/20 19:08 03/05/20 19:11 Solu-Medrol 125 Mg IV 03/05/20 19:09 125 mg STAT ONE Administration Methylprednisolone Sodium Succinate Confirm 03/05/20 19:10 Solu-Medrol 125 Mg Administered 03/05/20 19:11 Dose 125 mg .ROUTE .STK-MED ONE Lab/Rad Data: Laboratory Result Diagrams 03/05/20 19:10 03/05/20 19:10 Laboratory Results 03/06/20 03/05/20 03/05/20 Range/Units 01:30 23:00 20:42 WBC (4.0-10.5) K/mm3 RBC (4.1-5.6) M/mm3 Hgb (12.5-18.0) gm/dl Hct (42-50) % MCV (78-100) fl MCH (26-32) pg MCHC (32-36) g/dl RDW (11.5-14.0) % Plt Count (150-450) K/mm3 MPV (7.5-11.0) fl Gran % (36.0-66.0) % Eos # (Auto) (0-0.5) Absolute Lymphs (auto) (1.0-4.6) Absolute Monos (auto) (0.0-1.3) Lymphocytes % (24.0-44.0) % Monocytes % (0.0-12.0) % Eosinophils % (0.00-5.0) % Basophils % (0.0-0.4) % Absolute Granulocytes (1.4-6.9) Basophils # (0-0.4) PT (8.83-12.87) SECONDS INR (0.8-3.0) APTT (24.1-36.1) SECONDS D-Dimer (215-500) ng/mL Sodium (137-145) mmol/L Potassium (3.5-5.1) mmol/L Chloride (98-107) mmol/L Carbon Dioxide (22-30) mmol/L Anion Gap (5-15) MEQ/L BUN (9-20) mg/dL Creatinine (0.66-1.25) mg/dL Estimated GFR ML/MIN Glucose (74-106) mg/dL Lactic Acid (0.4-2.0) Calcium (8.4-10.2) mg/dL Magnesium (1.6-2.3) mg/dL Total Bilirubin (0.2-1.3) mg/dL AST (17-59) U/L ALT (0-50) U/L Alkaline Phosphatase (38-126) U/L Troponin I 0.023 0.033 (0.000-0.034) ng/mL NT-Pro-B Natriuret Pep (0-900) pg/mL Serum Total Protein (6.3-8.2) g/dL Albumin (3.5-5.0) g/dL Urine Color (YELLOW) Urine Appearance (CLEAR) Urine pH (5-6) Ur Specific [place] (1.005-1.025) Urine Protein (Negative) Urine Ketones (NEGATIVE) Urine Blood (0-5) Brant/ul Urine Nitrite (NEGATIVE) Urine Bilirubin (NEGATIVE) Urine Urobilinogen (0-1) mg/dL Ur Leukocyte Esterase (NEGATIVE) Urine WBC (Auto) (0-5) /HPF Urine RBC (Auto) (0-2) /HPF U Epithel Cells (Auto) (FEW) /HPF Urine Bacteria (Auto) (NEGATIVE) /HPF Amorphous Crystals (NEGATIVE) /HPF Urine Mucus (Auto) (NEGATIVE) /HPF Urine Culture Reflexed (NO) Urine Glucose (NEGATIVE) mg/dL SARS-CoV-2 (PCR) NEGATIVE (NEGATIVE) Slides for Path Review 03/05/20 03/05/20 03/05/20 Range/Units 20:00 19:19 19:10 WBC (4.0-10.5) K/mm3 RBC (4.1-5.6) M/mm3 Hgb (12.5-18.0) gm/dl Hct (42-50) % MCV (78-100) fl MCH (26-32) pg MCHC (32-36) g/dl RDW (11.5-14.0) % Plt Count (150-450) K/mm3 MPV (7.5-11.0) fl Gran % (36.0-66.0) % Eos # (Auto) (0-0.5) Absolute Lymphs (auto) (1.0-4.6) Absolute Monos (auto) (0.0-1.3) Lymphocytes % (24.0-44.0) % Monocytes % (0.0-12.0) % Eosinophils % (0.00-5.0) % Basophils % (0.0-0.4) % Absolute Granulocytes (1.4-6.9) Basophils # (0-0.4) PT (8.83-12.87) SECONDS INR (0.8-3.0) APTT (24.1-36.1) SECONDS D-Dimer 3692 H* (215-500) ng/mL Sodium (137-145) mmol/L Potassium (3.5-5.1) mmol/L Chloride (98-107) mmol/L Carbon Dioxide (22-30) mmol/L Anion Gap (5-15) MEQ/L BUN (9-20) mg/dL Creatinine (0.66-1.25) mg/dL Estimated GFR ML/MIN Glucose (74-106) mg/dL Lactic Acid (0.4-2.0) Calcium (8.4-10.2) mg/dL Magnesium (1.6-2.3) mg/dL Total Bilirubin (0.2-1.3) mg/dL AST (17-59) U/L ALT (0-50) U/L Alkaline Phosphatase (38-126) U/L Troponin I 0.038 H* (0.000-0.034) ng/mL NT-Pro-B Natriuret Pep (0-900) pg/mL Serum Total Protein (6.3-8.2) g/dL Albumin (3.5-5.0) g/dL Urine Color YELLOW (YELLOW) Urine Appearance SLIGHTLY CLOUDY (CLEAR) Urine pH 8.0 (5-6) Ur Specific [place] 1.015 (1.005-1.025) Urine Protein 100 (Negative) Urine Ketones NEGATIVE (NEGATIVE) Urine Blood NEGATIVE (0-5) Brant/ul Urine Nitrite NEGATIVE (NEGATIVE) Urine Bilirubin NEGATIVE (NEGATIVE) Urine Urobilinogen 4 (0-1) mg/dL Ur Leukocyte Esterase SMALL (NEGATIVE) Urine WBC (Auto) 26-50 (0-5) /HPF Urine RBC (Auto) 16-25 (0-2) /HPF U Epithel Cells (Auto) NONE (FEW) /HPF Urine Bacteria (Auto) NONE (NEGATIVE) /HPF Amorphous Crystals FEW (NEGATIVE) /HPF Urine Mucus (Auto) SLIGHT (NEGATIVE) /HPF Urine Culture Reflexed YES (NO) Urine Glucose NEGATIVE (NEGATIVE) mg/dL SARS-CoV-2 (PCR) (NEGATIVE) Slides for Path Review 03/05/20 03/05/20 03/05/20 Range/Units 19:10 19:10 19:10 WBC 8.2 (4.0-10.5) K/mm3 RBC 3.92 L (4.1-5.6) M/mm3 Hgb 9.6 L (12.5-18.0) gm/dl Hct 33.3 L (42-50) % MCV 84.9 (78-100) fl MCH 24.5 L (26-32) pg MCHC 28.8 L (32-36) g/dl RDW 16.0 H (11.5-14.0) % Plt Count 289 (150-450) K/mm3 MPV 9.7 (7.5-11.0) fl Gran % 59.8 (36.0-66.0) % Eos # (Auto) 0.49 (0-0.5) Absolute Lymphs (auto) 1.79 (1.0-4.6) Absolute Monos (auto) 0.97 (0.0-1.3) Lymphocytes % 21.9 L (24.0-44.0) % Monocytes % 11.9 (0.0-12.0) % Eosinophils % 6.0 H (0.00-5.0) % Basophils % 0.4 (0.0-0.4) % Absolute Granulocytes 4.88 (1.4-6.9) Basophils # 0.03 (0-0.4) PT 14.2 H (8.83-12.87) SECONDS INR 1.25 (0.8-3.0) APTT 27.0 (24.1-36.1) SECONDS D-Dimer (215-500) ng/mL Sodium 138 (137-145) mmol/L Potassium 4.1 (3.5-5.1) mmol/L Chloride 94 L (98-107) mmol/L Carbon Dioxide 39 H (22-30) mmol/L Anion Gap 8.4 (5-15) MEQ/L BUN 10 (9-20) mg/dL Creatinine 1.14 (0.66-1.25) mg/dL Estimated GFR > 60.0 ML/MIN Glucose 142 H (74-106) mg/dL Lactic Acid (0.4-2.0) Calcium 9.3 (8.4-10.2) mg/dL Magnesium 1.5 L (1.6-2.3) mg/dL Total Bilirubin 0.60 (0.2-1.3) mg/dL AST 17 (17-59) U/L ALT 12 (0-50) U/L Alkaline Phosphatase 121 (38-126) U/L Troponin I (0.000-0.034) ng/mL NT-Pro-B Natriuret Pep 1310 H (0-900) pg/mL Serum Total Protein 7.1 (6.3-8.2) g/dL Albumin 3.7 (3.5-5.0) g/dL Urine Color (YELLOW) Urine Appearance (CLEAR) Urine pH (5-6) Ur Specific [place] (1.005-1.025) Urine Protein (Negative) Urine Ketones (NEGATIVE) Urine Blood (0-5) Brant/ul Urine Nitrite (NEGATIVE) Urine Bilirubin (NEGATIVE) Urine Urobilinogen (0-1) mg/dL Ur Leukocyte Esterase (NEGATIVE) Urine WBC (Auto) (0-5) /HPF Urine RBC (Auto) (0-2) /HPF U Epithel Cells (Auto) (FEW) /HPF Urine Bacteria (Auto) (NEGATIVE) /HPF Amorphous Crystals (NEGATIVE) /HPF Urine Mucus (Auto) (NEGATIVE) /HPF Urine Culture Reflexed (NO) Urine Glucose (NEGATIVE) mg/dL SARS-CoV-2 (PCR) (NEGATIVE) Slides for Path Review YES 03/05/20 Range/Units 18:53 WBC (4.0-10.5) K/mm3 RBC (4.1-5.6) M/mm3 Hgb (12.5-18.0) gm/dl Hct (42-50) % MCV (78-100) fl MCH (26-32) pg MCHC (32-36) g/dl RDW (11.5-14.0) % Plt Count (150-450) K/mm3 MPV (7.5-11.0) fl Gran % (36.0-66.0) % Eos # (Auto) (0-0.5) Absolute Lymphs (auto) (1.0-4.6) Absolute Monos (auto) (0.0-1.3) Lymphocytes % (24.0-44.0) % Monocytes % (0.0-12.0) % Eosinophils % (0.00-5.0) % Basophils % (0.0-0.4) % Absolute Granulocytes (1.4-6.9) Basophils # (0-0.4) PT (8.83-12.87) SECONDS INR (0.8-3.0) APTT (24.1-36.1) SECONDS D-Dimer (215-500) ng/mL Sodium (137-145) mmol/L Potassium (3.5-5.1) mmol/L Chloride (98-107) mmol/L Carbon Dioxide (22-30) mmol/L Anion Gap (5-15) MEQ/L BUN (9-20) mg/dL Creatinine (0.66-1.25) mg/dL Estimated GFR ML/MIN Glucose (74-106) mg/dL Lactic Acid 1.5 (0.4-2.0) Calcium (8.4-10.2) mg/dL Magnesium (1.6-2.3) mg/dL Total Bilirubin (0.2-1.3) mg/dL AST (17-59) U/L ALT (0-50) U/L Alkaline Phosphatase (38-126) U/L Troponin I (0.000-0.034) ng/mL NT-Pro-B Natriuret Pep (0-900) pg/mL Serum Total Protein (6.3-8.2) g/dL Albumin (3.5-5.0) g/dL Urine Color (YELLOW) Urine Appearance (CLEAR) Urine pH (5-6) Ur Specific [place] (1.005-1.025) Urine Protein (Negative) Urine Ketones (NEGATIVE) Urine Blood (0-5) Brant/ul Urine Nitrite (NEGATIVE) Urine Bilirubin (NEGATIVE) Urine Urobilinogen (0-1) mg/dL Ur Leukocyte Esterase (NEGATIVE) Urine WBC (Auto) (0-5) /HPF Urine RBC (Auto) (0-2) /HPF U Epithel Cells (Auto) (FEW) /HPF Urine Bacteria (Auto) (NEGATIVE) /HPF Amorphous Crystals (NEGATIVE) /HPF Urine Mucus (Auto) (NEGATIVE) /HPF Urine Culture Reflexed (NO) Urine Glucose (NEGATIVE) mg/dL SARS-CoV-2 (PCR) (NEGATIVE) Slides for Path Review - Progress Progress: improved Air Movement: fair Progress Note: 03/06/20 00:07 Given patient's symptoms, will do a cardiac work-up including D-dimer. Solu-Medrol and DuoNeb given as well. Patient seemed to improve with that. Given elevated D-dimer and elevated troponin, will get CTA of chest to rule out PE. CTA was negative. Second troponin was decreasing and now within normal limits. Patient's oxygenation seems to be okay on O2 but he normally is not on any at home. However when he turns to his side his oxygenation does go down to 82% on room air. We will call [facility] for possible transfer to their facility. 03/06/20 01:06 No beds at the [facility] and so patient will be admitted here for COPD exacerbation. Blood Culture(s) Obtained: No Antibiotics given: No Discussed with : Jenna Will see patient in: hospital (observation) Counseled pt/family regarding: lab results, diagnosis, rad results - Departure Departure Disposition: Observation Clinical Impression: COPD exacerbation, Hypoxia, Elevated troponin Condition: Stable Critical Care Time: No Critical Care Time(excluding separately billable procedures): Critical 30-74 mins
[2020-03-05 19:29] LABS: INR 1.25 (0.8-3.0); PROTIME 14.2 SECONDS (8.83-12.87)
[2020-03-05 19:50] LABS: ALBUMIN 3.7 g/dL (3.5-5.0); ALKALINE PHOSPHATASE 121 U/L (38-126); ANION GAP 8.4 MEQ/L (5-15); BLOOD UREA NITROGEN 10 mg/dL (9-20); CHLORIDE 94 mmol/L (98-107); Calcium 9.3 mg/dL (8.4-10.2); Carbon Dioxide 39 mmol/L (22-30); Creatinine 1 1.14 mg/dL (0.66-1.25); EST GLOMERULAR FILTRATION RATE > 60.0 ML/MIN; Glucose 142 mg/dL (74-106); MAGNESIUM 1.5 mg/dL (1.6-2.3); NT PRO BNP 1310 pg/mL (0-900); Potassium 4.1 mmol/L (3.5-5.1); SGOT/AST 17 U/L (17-59); SGPT/ALT 12 U/L (0-50); SODIUM 138 mmol/L (137-145); Total Protein 7.1 g/dL (6.3-8.2)
[2020-03-05 20:00] LABS: Amourphous Crystal FEW /HPF (NEGATIVE); Appearance SLIGHTLY CLOUDY (CLEAR); Bilirubin NEGATIVE (NEGATIVE); Blood NEGATIVE Ery/ul (0-5); Glucose NEGATIVE (NEGATIVE); Ketones NEGATIVE (NEGATIVE); Leukocyte Esterase SMALL (NEGATIVE); Mucus SLIGHT /HPF (NEGATIVE); Nitrite NEGATIVE (NEGATIVE); Protein,Urine Dip 100 (Negative); Specific Gravity 1.015 (1.005-1.025); Urobilinogen 4 mg/dL (0-1); WBC 26-50 /HPF (0-5)
[2020-03-05] MEDS ORDERED: Magnesium Sulfate 1 GM/2 ML VIAL IV ONE (20:00)
[2020-03-05 20:11] LABS: Slide Review 1 YES
[2020-03-05] MEDS: Magnesium 1 Gm / 100 Ml D5W*** 100 ML IV SCH ×2 (20:33→22:32)
[2020-03-06] MEDS ORDERED: TYLENOL 325 MG PO PRN (01:00)
[2020-03-06] MEDS ORDERED: DUONEB 0.5-3 MG/3 ml Neb IH PRN (01:00)
[2020-03-06] MEDS ORDERED: Zofran 4 MG/2 ML VIAL IV PRN (01:00)
[2020-03-06] MEDS: Sodium Chloride 0.9% 1000 ML 1,000 ML IV SCH ×3 (02:00→23:43)
[2020-03-06 04:55] LABS: Hematocrit 29.4 % (42-50); Hemoglobin 8.5 gm/dl (12.5-18.0); Mean Cell Volume 83.8 fl (78-100); Mean Corpuscular Hemoglobin 24.2 pg (26-32); Mean Corpuscular Hgb Concent. 28.9 g/dl (32-36); Mean Platelet Volume 9.4 fl (7.5-11.0); Platelet Count 243 K/mm3 (150-450); Red Blood Count 3.51 M/mm3 (4.1-5.6); Red Cell Distribution Width 16.1 % (11.5-14.0); White Blood Count 6.2 K/mm3 (4.0-10.5)
[2020-03-06 05:16] LABS: ALBUMIN 3.3 g/dL (3.5-5.0); ALKALINE PHOSPHATASE 108 U/L (38-126); ANION GAP 10.2 MEQ/L (5-15); BLOOD UREA NITROGEN 14 mg/dL (9-20); CHLORIDE 93 mmol/L (98-107); Calcium 8.7 mg/dL (8.4-10.2); Carbon Dioxide 34 mmol/L (22-30); Creatinine 1 1.16 mg/dL (0.66-1.25); EST GLOMERULAR FILTRATION RATE > 60.0 ML/MIN; Glucose 408 mg/dL (74-106); Potassium 4.9 mmol/L (3.5-5.1); SGOT/AST 16 U/L (17-59); SGPT/ALT 12 U/L (0-50); SODIUM 133 mmol/L (137-145); Total Protein 6.2 g/dL (6.3-8.2)
[2020-03-06] MEDS: DUONEB 0.5-3 MG/3 ml Neb IH SCH ×3 (06:57→19:37)
[2020-03-06] MEDS: Advair Hfa 230/21 Mcg COMMON CANISTER IH SCH ×2 (06:58→19:38)
[2020-03-06 07:24] LABS: ANISOCYTOSIS 1+; Hypochromia 1+; Lymphocytes 1 % (24-44); Neutrophils 99 % (36.-66.); Platelet Estimate NORMAL (NORMAL); Poikilocytosis 1+; Polychromasia 1+; Total Cells Counted 100
[2020-03-06] MEDS ORDERED: HUMALOG SQ PRN (07:54)
[2020-03-06] MEDS ORDERED: Colace 100 MG PO PRN (08:19)
--- NOTE | 2020-03-06 08:51 | XRAY ---
Indication: Short of breath. Elevated d-dimer. Multiple contiguous axial images obtained through the chest using 80 cc Isovue 370 contrast and PE protocol. Comparison: CT chest without contrast January 01, 2020. There is adequate opacification of the pulmonary arteries to includes the lobar and segmental branches. No pulmonary embolus. Heart is not enlarged. Aorta remains mildly arteriosclerotic without aneurysm/dissection. Stable small mediastinal and right hilar calcified nodes. No pathologic mediastinal/hilar lymphadenopathy. Lungs again hyperinflated with minimal bibasilar dependent atelectasis and tiny right middle lobe calcified granuloma. No suspicious pulmonary mass, infiltrates, consolidation, or effusion. Bony thorax intact again with minimal degenerative changes throughout the spine and right 4 rib bone island. Limited upper abdomen again demonstrates gallbladder sludge/gravel and hepatic/splenic calcified granulomas. Impression: 1. Negative pulmonary embolus. No new or acute cardiopulmonary abnormalities. 2. Again incidental gallbladder sludge/gravel and chronic bony findings. Comment: Preliminary interpretation was made by [facility]. No critical discrepancy.
--- NOTE | 2020-03-06 08:53 | XRAY ---
Indication: Hypoxia. Comparison: February 18, 2020. Portable chest again demonstrates normal heart and lungs with incidental mediastinal calcified nodes. Bony thorax intact again with right 4 rib bone island. No new/acute findings.
[2020-03-06] MEDS: NEURONTIN 300 MG PO SCH ×3 (09:37→21:30)
[2020-03-06] MEDS: VITAMIN D PO SCH ×2 (09:38→21:32)
[2020-03-06] MEDS: Vitamin C 500 MG PO SCH ×2 (09:38→21:32)
[2020-03-06] MEDS: Vitamin B-12 500 MCG PO SCH (09:38)
[2020-03-06] MEDS: FIBERCON 625 MG PO SCH (09:39)
[2020-03-06] MEDS: Protonix 40MG Tablet PO SCH ×2 (09:39→21:30)
[2020-03-06] MEDS: SENOKOT 8.6 MG PO SCH ×2 (09:39→21:30)
[2020-03-06] MEDS: Levofloxacin 500MG/100ML D5W 500 MG/100 ML BAG IV SCH (09:42)
[2020-03-06] MEDS: solu-MEDROL 125 MG IV SCH ×3 (09:42→21:30)
[2020-03-06] MEDS ORDERED: NON-FORMULARY ITEM (Ascorbic Acid [Vitamin C] 1,000 MG) PO SCH (10:00)
[2020-03-06] MEDS ORDERED: VITAMIN B-12 100 MCG PO SCH (10:00)
[2020-03-06] MEDS ORDERED: GABAPENTIN 900 MG PO SCH (10:00)
[2020-03-06] MEDS: Lantus Insulin SQ SCH ×2 (12:37→21:30)
[2020-03-06] MEDS: HUMALOG SQ SCH ×2 (12:38→17:28)
[2020-03-06] MEDS: HOLD METFORMIN PRODUCTS FOR 48 HOURS MC SCH (17:07)
[2020-03-06] MEDS: ATARAX 25 MG PO SCH (21:28)
[2020-03-06] MEDS: Effexor XR 75 MG PO SCH (21:29)
[2020-03-06] MEDS: DESYREL 50 MG PO SCH (21:29)
[2020-03-06] MEDS: ZOCOR 20MG PO SCH (21:32)
[2020-03-06] MEDS ORDERED: VENLAFAXINE HCL 225 MG PO SCH (22:00)
[2020-03-06] MEDS ORDERED: NON-FORMULARY ITEM (Atorvastatin Calcium [Atorvastatin Calcium] 40 MG) PO SCH (22:00)
[2020-03-07] MEDS: DUONEB 0.5-3 MG/3 ml Neb IH SCH ×4 (00:39→19:04)
[2020-03-07 04:58] LABS: Absolute Neutrophil Ct (ANC) 5.96 (1.4-6.9); BASOPHIL % 0.1 % (0.0-0.4); Basophil (Absolute #) 0.01 (0-0.4); Eosinophil % 0.1 % (0.00-5.0); Eosinophil (Absolute #) 0.01 (0-0.5); Hematocrit 27.7 % (42-50); Hemoglobin 7.9 gm/dl (12.5-18.0); Lymphocyte (Absolute #) 0.51 (1.0-4.6); Lymphocytes % 7.5 % (24.0-44.0); Mean Cell Volume 83.9 fl (78-100); Mean Corpuscular Hemoglobin 23.9 pg (26-32); Mean Corpuscular Hgb Concent. 28.5 g/dl (32-36); Mean Platelet Volume 9.7 fl (7.5-11.0); Monocyte (Absolute #) 0.28 (0.0-1.3); Monocytes % 4.1 % (0.0-12.0); Neutrophil % 88.2 % (36.0-66.0); Platelet Count 254 K/mm3 (150-450); Red Cell Distribution Width 16.1 % (11.5-14.0); White Blood Count 6.8 K/mm3 (4.0-10.5)
[2020-03-07] MEDS: solu-MEDROL 125 MG IV SCH ×3 (05:05→21:46)
[2020-03-07 05:18] LABS: ALBUMIN 3.3 g/dL (3.5-5.0); ALKALINE PHOSPHATASE 96 U/L (38-126); BLOOD UREA NITROGEN 19 mg/dL (9-20); CHLORIDE 98 mmol/L (98-107); Calcium 8.8 mg/dL (8.4-10.2); Carbon Dioxide 31 mmol/L (22-30); Creatinine 1 1.06 mg/dL (0.66-1.25); EST GLOMERULAR FILTRATION RATE > 60.0 ML/MIN; Glucose 399 mg/dL (74-106); Potassium 4.8 mmol/L (3.5-5.1); SGOT/AST 15 U/L (17-59); SGPT/ALT 11 U/L (0-50); SODIUM 134 mmol/L (137-145); Total Protein 6.2 g/dL (6.3-8.2)
[2020-03-07] MEDS: HUMALOG SQ SCH ×3 (08:28→17:55)
[2020-03-07] MEDS: Advair Hfa 230/21 Mcg COMMON CANISTER IH SCH ×2 (08:44→19:05)
[2020-03-07] MEDS: Vitamin C 500 MG PO SCH ×2 (09:53→21:45)
[2020-03-07] MEDS: Protonix 40MG Tablet PO SCH ×2 (09:53→21:45)
[2020-03-07] MEDS: VITAMIN D PO SCH ×2 (09:53→21:45)
[2020-03-07] MEDS: NEURONTIN 300 MG PO SCH ×3 (09:53→21:45)
[2020-03-07] MEDS: Vitamin B-12 500 MCG PO SCH (09:54)
[2020-03-07] MEDS: Levofloxacin 500MG/100ML D5W 500 MG/100 ML BAG IV SCH (09:54)
[2020-03-07] MEDS: SENOKOT 8.6 MG PO SCH ×2 (09:54→21:45)
[2020-03-07] MEDS: Lantus Insulin SQ SCH ×2 (09:54→21:47)
[2020-03-07] MEDS: HOLD METFORMIN PRODUCTS FOR 48 HOURS MC SCH (09:54)
[2020-03-07] MEDS: FIBERCON 625 MG PO SCH (09:55)
[2020-03-07] MEDS: Sodium Chloride 0.9% 1000 ML 1,000 ML IV SCH ×2 (10:19→21:47)
[2020-03-07] MEDS: ENOXAPARIN SODIUM SQ SCH (14:21)
[2020-03-07] MEDS: ATARAX 25 MG PO SCH (21:45)
[2020-03-07] MEDS: ZOCOR 20MG PO SCH (21:45)
[2020-03-07] MEDS: DESYREL 50 MG PO SCH (21:46)
[2020-03-07] MEDS: Effexor XR 75 MG PO SCH (21:46)
--- NOTE | 2020-03-07 22:52 | PCM.HP ---
History of Present Illness - Chief Complaint Chief Complaint: COPD EXACERBATION History of Present Illness: is a 69 year old male who is [place] presented to the ER with progressive increase in sob ,O2 sat 78% on RA and 95% on 2L O2 in the ER. He is not on O2 at home. PMH includes HTN, CAD/stent, HLD, IDDM2, COPD-former smoker, sleep apnea, DDD,OA, chronic urinary retention with indwelling catheter. Patient has had sharp pain right chest and shortness of breath,denies cough or fever denies known exposure to Covid,denies abdominal or back pain. - Review of Systems Constitutional: Fatigue, Lethargy (sedentay lifestyle) Eyes: No Symptoms Respiratory: Short Of Breath (uses neb tx at home) Cardiac: Chest Pain (right side sharp fleeting pains) Abdominal/Gastrointestinal: No Symptoms (good appetite) Genitourinary Symptoms: Hematuria (has seen blood around catheter,no pain) Musculoskeletal: Back Pain (chronic) Skin: No Symptoms Psychological: No Symptoms Endocrine: Other (IDDM2,sedentary lifestyle) Hematologic/Lymphatic: Anemia (per ER labs,denies Hx anemia or GI bleed,no change in stool.) Immunological/Allergic: Other (states house is very [place] and thinks this is why he has had the increase in trouble breathing) Medications & Allergies Home Medications: Home Medication List Albuterol Sulfate [Proventil Hfa] 6.7 gm IH Q6HPRN PRN 03/21/13 [History Confirmed 03/05/20] Budesonide/Formoterol Fumarate [Symbicort 160-4.5 Mcg Inhaler] 6 gm IH BID 03/21/13 [History Confirmed 03/06/20] Gabapentin 900 mg PO TID 03/21/13 [History Confirmed 03/06/20] PANTOPRAZOLE 40 mg Tablet [Protonix 40MG Tablet] 40 mg PO BID 03/21/13 [History Confirmed 03/06/20] Venlafaxine HCl [Venlafaxine HCl ER] 225 mg PO HS 03/21/13 [History Confirmed 03/06/20] Ascorbic Acid [Vitamin C] 1,000 mg PO BID 03/11/16 [History Confirmed 03/06/20] Atorvastatin Calcium 40 mg PO HS 03/11/16 [History Confirmed 03/05/20] Calcium Polycarbophil 625 mg PO DAILY 03/11/16 [History Confirmed 03/05/20] Cholecalciferol (Vitamin D3) [Vitamin D3] 1,000 unit PO BID 03/11/16 [History Confirmed 03/06/20] Cyanocobalamin (Vitamin B-12) [Cyanocobalamin] 1,000 mcg PO DAILY 03/11/16 [History Confirmed 03/06/20] Docusate Sodium [Stool Softener] 50 mg PO BID 03/11/16 [History Confirmed 03/06/20] Hydrocodone/Acetaminophen [Hydrocodon-Acetaminophen 5-325] 1 each PO BID PRN 03/11/16 [History Confirmed 03/06/20] Sennosides 8.6 mg PO BID 03/11/16 [History Confirmed 03/06/20] Trazodone HCl 100 mg PO HS 03/11/16 [History Confirmed 03/06/20] hydrOXYzine pamoate [Hydroxyzine Pamoate] 50 mg PO HS 03/11/16 [History Confirmed 03/06/20] Insulin Glargine [Lantus Insulin] 45 unit SQ BID 03/06/20 [History Confirmed 03/06/20] Insulin Lispro [Humalog] 35 unit SQ BID 03/06/20 [History Confirmed 03/06/20] Metformin HCl 0 mg PO DIRECTIONS UNKNOWN 03/06/20 [History Confirmed 03/06/20] Allergies/Adverse Reactions: Allergies Allergy/AdvReac Type Severity Reaction Status Date / Time ginseng Allergy Verified 03/05/20 19:04 Penicillins Allergy Verified 03/05/20 19:04 - Past Medical History Past Medical History: Yes Neurological History: No Pertinent History ENT History: No Pertinent History Cardiac History: High Cholesterol, Hypertension, Myocardial Infarction (MS) Respiratory History: COPD, Emphysema, Sleep Apnea Endocrine Medical History: Diabetes Type II Musculoskelatal History: Degenerative Disk Disease, Osteoarthritis, Other GI Medical History: GERD History: No Pertinent History Pyscho-Social History: Depression Male Reproductive Disorders: No Pertinent History - Past Surgical History Past Surgical History: Yes Neuro Surgical History: No Pertinent History Cardiac History: Cardiac Catheterization, Cardiac Stent Respiratory Surgery: No Pertinent History GI Surgical History: No Pertinent History Genitourinary Surgical Hx: No Pertinent History Musculskeletal Surgical Hx: Other Male Surgical History: No Pertinent History Other Surgical History: back surgery. trigger finger - Social History Smoking Status: Former smoker Exposure to second hand smoke: No Alcohol: None Drug Use: none - Physical Exam Vital Signs: Vital Signs - 24 hr Temp Pulse Resp BP BP Pulse Ox 03/07/20 20:00 98.1 F 80 24 143/63 152/67 96 03/07/20 19:08 74 22 97 03/07/20 16:00 97.5 F 84 16 131/66 93 L 03/07/20 13:35 69 16 94 L 03/07/20 12:00 98.7 F 88 20 115/54 93 L 03/07/20 07:50 98.2 F 60 18 147/66 97 03/07/20 07:20 83 16 93 L 03/07/20 04:00 97.6 F 64 15 148/70 93 L 03/07/20 00:47 56 L 18 96 03/07/20 00:00 98.2 F 70 15 156/74 94 L Oxygen-Last 24 hours Oxygen Flowrate (L/min)-RT 3 Oxygen Flowrate (L/min)-RT 3 General Appearance: no apparent distress, lethargy (laying on his right side scooping spaghetti into his mouth from bedside table with some falling to the floor.), obese (apple shaped), other Neurologic Exam: alert, oriented x 3, cooperative, normal mood/affect Eye Exam: eyes nml inspection Ears, Nose, Throat Exam: normal ENT inspection, moist mucous membranes Neck Exam: other (no mass no JVD) Respiratory Exam: diminished breath sounds (no wheeze no ronchi no rales) Cardiovascular Exam: regular rate/rhythm, edema (trace pedal edema) Gastrointestinal/Abdomen Exam: soft, normal bowel sounds (nontender) Extremity Exam: normal inspection (no calf tenderness) Skin Exam: warm, dry, pale Results - Labs Lab/Micro Results: Lab Results-Last 24 Hours 03/07/20 03/07/20 03/07/20 Range/Units 04:35 04:35 07:29 WBC 6.8 (4.0-10.5) K/mm3 RBC 3.30 L (4.1-5.6) M/mm3 Hgb 7.9 L (12.5-18.0) gm/dl Hct 27.7 L (42-50) % MCV 83.9 (78-100) fl MCH 23.9 L (26-32) pg MCHC 28.5 L (32-36) g/dl RDW 16.1 H (11.5-14.0) % Plt Count 254 (150-450) K/mm3 MPV 9.7 (7.5-11.0) fl Gran % 88.2 H (36.0-66.0) % Eos # (Auto) 0.01 (0-0.5) Absolute Lymphs (auto) 0.51 L (1.0-4.6) Absolute Monos (auto) 0.28 (0.0-1.3) Lymphocytes % 7.5 L (24.0-44.0) % Monocytes % 4.1 (0.0-12.0) % Eosinophils % 0.1 (0.00-5.0) % Basophils % 0.1 (0.0-0.4) % Absolute Granulocytes 5.96 (1.4-6.9) Basophils # 0.01 (0-0.4) Sodium 134 L (137-145) mmol/L Potassium 4.8 (3.5-5.1) mmol/L Chloride 98 (98-107) mmol/L Carbon Dioxide 31 H (22-30) mmol/L Anion Gap 9.0 (5-15) MEQ/L BUN 19 (9-20) mg/dL Creatinine 1.06 (0.66-1.25) mg/dL Estimated GFR > 60.0 ML/MIN Glucose 399 H (74-106) mg/dL POC Glucometer 298 H (74 to 106) mg/dL Calcium 8.8 (8.4-10.2) mg/dL Total Bilirubin 0.40 (0.2-1.3) mg/dL AST 15 L (17-59) U/L ALT 11 (0-50) U/L Alkaline Phosphatase 96 (38-126) U/L Serum Total Protein 6.2 L (6.3-8.2) g/dL Albumin 3.3 L (3.5-5.0) g/dL SARS-CoV-2 (PCR) (NEGATIVE) Slides for Path Review 03/07/20 03/07/20 03/07/20 Range/Units 11:58 14:23 15:53 WBC (4.0-10.5) K/mm3 RBC (4.1-5.6) M/mm3 Hgb (12.5-18.0) gm/dl Hct (42-50) % MCV (78-100) fl MCH (26-32) pg MCHC (32-36) g/dl RDW (11.5-14.0) % Plt Count (150-450) K/mm3 MPV (7.5-11.0) fl Gran % (36.0-66.0) % Eos # (Auto) (0-0.5) Absolute Lymphs (auto) (1.0-4.6) Absolute Monos (auto) (0.0-1.3) Lymphocytes % (24.0-44.0) % Monocytes % (0.0-12.0) % Eosinophils % (0.00-5.0) % Basophils % (0.0-0.4) % Absolute Granulocytes (1.4-6.9) Basophils # (0-0.4) Sodium (137-145) mmol/L Potassium (3.5-5.1) mmol/L Chloride (98-107) mmol/L Carbon Dioxide (22-30) mmol/L Anion Gap (5-15) MEQ/L BUN (9-20) mg/dL Creatinine (0.66-1.25) mg/dL Estimated GFR ML/MIN Glucose (74-106) mg/dL POC Glucometer 471 H 420 H (74 to 106) mg/dL Calcium (8.4-10.2) mg/dL Total Bilirubin (0.2-1.3) mg/dL AST (17-59) U/L ALT (0-50) U/L Alkaline Phosphatase (38-126) U/L Serum Total Protein (6.3-8.2) g/dL Albumin (3.5-5.0) g/dL SARS-CoV-2 (PCR) NEGATIVE (NEGATIVE) Slides for Path Review 03/07/20 Range/Units 20:56 WBC (4.0-10.5) K/mm3 RBC (4.1-5.6) M/mm3 Hgb (12.5-18.0) gm/dl Hct (42-50) % MCV (78-100) fl MCH (26-32) pg MCHC (32-36) g/dl RDW (11.5-14.0) % Plt Count (150-450) K/mm3 MPV (7.5-11.0) fl Gran % (36.0-66.0) % Eos # (Auto) (0-0.5) Absolute Lymphs (auto) (1.0-4.6) Absolute Monos (auto) (0.0-1.3) Lymphocytes % (24.0-44.0) % Monocytes % (0.0-12.0) % Eosinophils % (0.00-5.0) % Basophils % (0.0-0.4) % Absolute Granulocytes (1.4-6.9) Basophils # (0-0.4) Sodium (137-145) mmol/L Potassium (3.5-5.1) mmol/L Chloride (98-107) mmol/L Carbon Dioxide (22-30) mmol/L Anion Gap (5-15) MEQ/L BUN (9-20) mg/dL Creatinine (0.66-1.25) mg/dL Estimated GFR ML/MIN Glucose (74-106) mg/dL POC Glucometer 405 H (74 to 106) mg/dL Calcium (8.4-10.2) mg/dL Total Bilirubin (0.2-1.3) mg/dL AST (17-59) U/L ALT (0-50) U/L Alkaline Phosphatase (38-126) U/L Serum Total Protein (6.3-8.2) g/dL Albumin (3.5-5.0) g/dL SARS-CoV-2 (PCR) (NEGATIVE) Slides for Path Review Microbiology 03/05/20 19:19 Urine Culture - Preliminary Urine, Void NO GROWTH TO DATE Accuchecks Date 03/07/20 Date 03/07/20 Date 03/07/20 Time 16:30 Assessment/Plan (1) COPD exacerbation Current Visit: Yes Status: Acute Code(s): J44.1 - CHRONIC OBSTRUCTIVE PULMONARY DISEASE W (ACUTE) EXACERBATION (2) Eosinophilia Current Visit: Yes Status: Acute Qualifiers: Eosinophilia type: unspecified eosinophilia Qualified Code(s): D72.19 - Other eosinophilia Assessment & Plan: patient feels dust from his home is what set off his COPD this time. Code(s): D72.19 - OTHER EOSINOPHILIA (3) Hypoxia Current Visit: Yes Status: Acute Assessment & Plan: has not been Oxygen dependent Code(s): R09.02 - HYPOXEMIA (4) Elevated d-dimer Current Visit: Yes Status: Acute Assessment & Plan: chest CT negative for PE or acute findings Code(s): R79.89 - OTHER SPECIFIED ABNORMAL FINDINGS OF BLOOD CHEMISTRY (5) Elevated troponin Current Visit: Yes Status: Acute Code(s): R77.8 - OTHER SPECIFIED ABNORMALITIES OF PLASMA PROTEINS (6) Presence of stent in coronary artery in patient with coronary artery disease Current Visit: Yes Status: Chronic Code(s): I25.10 - ATHSCL HEART DISEASE OF [place] CORONARY ARTERY W/O ANG PCTRS; Z95.5 - PRESENCE OF CORONARY ANGIOPLASTY IMPLANT AND GRAFT (7) DM2 (diabetes mellitus, type 2) Current Visit: Yes Status: Chronic Qualifiers: Diabetes mellitus long term care social worker insulin use: without detention use (8) Anemia Current Visit: No Status: Acute Qualifiers: Anemia type: unspecified type Qualified Code(s): D64.9 - Anemia, unspecified Assessment & Plan: moniter Code(s): D64.9 - ANEMIA, UNSPECIFIED
[2020-03-08] MEDS: NORCO 5/325 MG PO PRN ×2 (03:36→21:50)
[2020-03-08] MEDS: DUONEB 0.5-3 MG/3 ml Neb IH SCH ×4 (05:26→19:16)
[2020-03-08] MEDS: Advair Hfa 230/21 Mcg COMMON CANISTER IH SCH ×2 (05:30→19:16)
[2020-03-08] MEDS: solu-MEDROL 125 MG IV SCH ×3 (06:19→21:51)
[2020-03-08] MEDS: Sodium Chloride 0.9% 1000 ML 1,000 ML IV SCH ×2 (07:49→18:30)
[2020-03-08] MEDS: HUMALOG SQ SCH ×3 (08:20→17:04)
--- NOTE | 2020-03-08 10:28 | PCM.NOTE ---
Date and Time: 03/08/20 1025 Subjective Assessment: Pt. notes still feeling sob, very low energy - Review of Systems Constitutional: No Symptoms Eyes: No Symptoms Ears, Nose, & Throat: No Symptoms Respiratory: Cough, Short Of Breath Cardiac: No Symptoms Abdominal/Gastrointestinal: No Symptoms Genitourinary Symptoms: No Symptoms Musculoskeletal: No Symptoms Skin: No Symptoms Neurological: No Symptoms Psychological: No Symptoms Hematologic/Lymphatic: No Symptoms Objective Exam General Appearance: no apparent distress Neurologic Exam: alert, cooperative Skin Exam: normal color, warm, dry, No rash, No petechiae Eye Exam: eyes nml inspection Ears, Nose, Throat Exam: normal ENT inspection Neck Exam: normal inspection Respiratory Exam: diminished breath sounds, prolonged expirations Cardiovascular Exam: regular rate/rhythm, normal heart sounds Gastrointestinal/Abdomen Exam: soft, normal bowel sounds, distention, No tenderness, No mass, No guarding Extremity Exam: normal inspection Male Genitalia Exam: deferred Rectal Exam: deferred OBJECTIVE DATA Vital Signs: Vital Signs - 24 hr Temp Pulse Resp BP BP Pulse Ox 03/08/20 07:18 98.4 F 112 H 16 136/61 92 L 03/08/20 05:30 66 18 95 03/08/20 04:00 98.1 F 70 18 133/63 152/67 93 L 03/08/20 00:00 97.9 F 70 19 140/62 94 L 03/07/20 20:00 98.1 F 80 24 143/63 152/67 96 03/07/20 19:08 74 22 97 03/07/20 16:00 97.5 F 84 16 131/66 93 L 03/07/20 13:35 69 16 94 L 03/07/20 12:00 98.7 F 88 20 115/54 93 L Pain Assessment - Last Documented Pain Intensity 2 Pain Scale Used 0-10 Pain Scale Intake and Output: Intake & Output 03/05/20 03/06/20 03/07/20 03/08/20 11:59 11:59 11:59 11:59 Intake Total 1040 3619 3216 Output Total 1000 3550 1600 Balance 40 69 1616 Weight 118.3 kg 118.3 kg Lab Results: Lab Results-Last 24 Hours 03/07/20 03/07/20 03/07/20 Range/Units 11:58 14:23 15:53 POC Glucometer 471 H 420 H (74 to 106) mg/dL SARS-CoV-2 (PCR) NEGATIVE (NEGATIVE) 03/07/20 03/08/20 Range/Units 20:56 07:07 POC Glucometer 405 H 304 H (74 to 106) mg/dL SARS-CoV-2 (PCR) (NEGATIVE) Multi-Disciplinary Progress Notes: Multi-Disciplinary Progress Notes 03/08/20 05:45 Respiratory Note by Carolyne Zarate DECREASED OXYGEN TO 1LPM FROM 2LPM AND SATS DROPPED TO 88%. INCREASED BACK TO 2LPM SATS UP TO 90% Initialized on 03/08/20 05:45 - END OF NOTE 03/07/20 14:40 Case Management Note by Rosemarie Greene Addendum entered by Rosemarie Greene 03/07/20 14:41: NOTE APPROX [id number] Original Note: PATIENT 82-83% ON ROOM AIR- RT NOTIFIED AND IS GOING IN TO ASSESS PATIENT AT THIS TIME Initialized on 03/07/20 14:40 - END OF NOTE 03/07/20 14:37 Case Management Note by Rosemarie Greene WHEN SPEAKING WITH THE [facility]. THEY DID AN OXYGEN EVAL ON HIM 02/08/2020 AND PATIENT WAS MID TO HIGH 90S ON ROOM AIR EVEN DURING ACTIVITY. THIS WAS REPORTED TO DR. PAYAN AND REPORT PLACED IN CHART Initialized on 03/07/20 14:37 - END OF NOTE 03/07/20 13:46 Case Management Note by Rosemarie Greene S/W PATIENT ABOUT NEEDS AT DC. HE REPORTS HE IS INDEPENDENT WITH ADLS. HE WAS NOTIFIED THAT [facility] WITH [facility] WILL BE FOLLOWING UP WITH HIM. HE ALREADY HAS [facility] IN PLACE. IF PATIENT NEEDS TO DC WITH HOME O[facility]GEN[facility] BUT THEY ARE ONLY OPEN M-F. THIS CAN NOT BE SET UP OVER THE WEEKEND. IF PATIENT CHOOSES TO AND IS RELEASED OVER THE WEEKEND- IF HE CAN AFFORD A $35/MONTH COPAY HE CAN USE [facility]. HE CAN THEN MAKE AN APPOINTMENT WITH THE [facility] AND GET [facility] TO [facility] AND THEN DROP [facility]. NOTE LEFT ON CHART WITH [facility] ORDER FORM AND OXYGEN ORDERING INSTRUCTIONS- IF NEEDED OVER THE WEEKEND Initialized on 03/07/20 13:46 - END OF NOTE 03/07/20 13:24 Case Management Note by Rosemarie Greene [facility] CALLED AND THEY HAVE RECEIVED A REFERRAL IN THE PAST FOR HIM. HE IS NOW SET UP WITH A HUMANITIES COORDINATOR NAMED SAMANTHA AT THE [facility]. Initialized on 03/07/20 13:24 - END OF NOTE Assessment/Plan (1) COPD exacerbation Current Visit: Yes Status: Acute Assessment & Plan: continue current treatment regimen Code(s): J44.1 - CHRONIC OBSTRUCTIVE PULMONARY DISEASE W (ACUTE) EXACERBATION
[2020-03-08] MEDS: FIBERCON 625 MG PO SCH (10:51)
[2020-03-08] MEDS: Levofloxacin 500MG/100ML D5W 500 MG/100 ML BAG IV SCH (10:51)
[2020-03-08] MEDS: ENOXAPARIN SODIUM SQ SCH (10:51)
[2020-03-08] MEDS: Vitamin B-12 500 MCG PO SCH (10:52)
[2020-03-08] MEDS: NEURONTIN 300 MG PO SCH ×3 (10:52→21:50)
[2020-03-08] MEDS: SENOKOT 8.6 MG PO SCH ×2 (10:52→21:50)
[2020-03-08] MEDS: Protonix 40MG Tablet PO SCH ×2 (10:53→21:51)
[2020-03-08] MEDS: VITAMIN D PO SCH ×2 (10:53→21:51)
[2020-03-08] MEDS: Lantus Insulin SQ SCH ×2 (10:53→22:01)
[2020-03-08] MEDS: Vitamin C 500 MG PO SCH ×2 (10:53→21:51)
[2020-03-08] MEDS: HOLD METFORMIN PRODUCTS FOR 48 HOURS MC SCH (10:54)
[2020-03-08 11:06] LABS: Absolute Neutrophil Ct (ANC) 8.09 (1.4-6.9); BASOPHIL % 0.1 % (0.0-0.4); Basophil (Absolute #) 0.01 (0-0.4); Eosinophil (Absolute #) 0 (0-0.5); Hematocrit 26.7 % (42-50); Hemoglobin 7.7 gm/dl (12.5-18.0); Lymphocyte (Absolute #) 0.38 (1.0-4.6); Lymphocytes % 4.3 % (24.0-44.0); Mean Corpuscular Hemoglobin 24.5 pg (26-32); Mean Corpuscular Hgb Concent. 28.8 g/dl (32-36); Mean Platelet Volume 9.6 fl (7.5-11.0); Monocyte (Absolute #) 0.33 (0.0-1.3); Monocytes % 3.7 % (0.0-12.0); Neutrophil % 91.9 % (36.0-66.0); Platelet Count 235 K/mm3 (150-450); Red Blood Count 3.14 M/mm3 (4.1-5.6); Red Cell Distribution Width 16.1 % (11.5-14.0); White Blood Count 8.8 K/mm3 (4.0-10.5)
[2020-03-08 11:49] LABS: ALBUMIN 3.3 g/dL (3.5-5.0); ALKALINE PHOSPHATASE 78 U/L (38-126); ANION GAP 9.2 MEQ/L (5-15); BLOOD UREA NITROGEN 25 mg/dL (9-20); CHLORIDE 101 mmol/L (98-107); Calcium 8.8 mg/dL (8.4-10.2); Carbon Dioxide 30 mmol/L (22-30); EST GLOMERULAR FILTRATION RATE > 60.0 ML/MIN; Glucose 375 mg/dL (74-106); Potassium 4.9 mmol/L (3.5-5.1); SGOT/AST 21 U/L (17-59); SGPT/ALT 20 U/L (0-50); SODIUM 135 mmol/L (137-145)
[2020-03-08 15:32] LABS: Slide Review 1 YES
[2020-03-08] MEDS: DESYREL 50 MG PO SCH (21:50)
[2020-03-08] MEDS: ZOCOR 20MG PO SCH (21:50)
[2020-03-08] MEDS: Effexor XR 75 MG PO SCH (21:51)
[2020-03-08] MEDS: ATARAX 25 MG PO SCH (21:52)
[2020-03-08] MEDS: HUMALOG SQ PRN (21:52)
[2020-03-09] MEDS: Sodium Chloride 0.9% 1000 ML 1,000 ML IV SCH ×3 (01:16→14:01)
[2020-03-09] MEDS: solu-MEDROL 125 MG IV SCH ×3 (05:50→22:24)
[2020-03-09] MEDS: DUONEB 0.5-3 MG/3 ml Neb IH SCH ×3 (07:19→19:23)
[2020-03-09] MEDS: Advair Hfa 230/21 Mcg COMMON CANISTER IH SCH ×2 (07:19→19:24)
[2020-03-09] MEDS: HUMALOG SQ SCH ×3 (08:13→17:07)
[2020-03-09] MEDS: HUMALOG SQ PRN ×4 (08:14→22:25)
[2020-03-09] MEDS: Vitamin B-12 500 MCG PO SCH (10:40)
[2020-03-09] MEDS: VITAMIN D PO SCH ×2 (10:40→22:22)
[2020-03-09] MEDS: SENOKOT 8.6 MG PO SCH ×2 (10:40→22:23)
[2020-03-09] MEDS: NEURONTIN 300 MG PO SCH ×3 (10:40→22:22)
[2020-03-09] MEDS: Protonix 40MG Tablet PO SCH ×2 (10:40→22:40)
[2020-03-09] MEDS: FIBERCON 625 MG PO SCH (10:41)
[2020-03-09] MEDS: Levofloxacin 500MG/100ML D5W 500 MG/100 ML BAG IV SCH (10:49)
[2020-03-09] MEDS: ENOXAPARIN SODIUM SQ SCH (10:54)
[2020-03-09] MEDS: Lantus Insulin SQ SCH ×2 (10:56→22:24)
[2020-03-09 11:09] LABS: Hematocrit 27.5 % (42-50); Mean Cell Volume 84.9 fl (78-100); Mean Corpuscular Hemoglobin 24.7 pg (26-32); Mean Corpuscular Hgb Concent. 29.1 g/dl (32-36); Mean Platelet Volume 9.4 fl (7.5-11.0); Platelet Count 230 K/mm3 (150-450); Red Blood Count 3.24 M/mm3 (4.1-5.6); Red Cell Distribution Width 16.2 % (11.5-14.0); White Blood Count 7.5 K/mm3 (4.0-10.5)
--- NOTE | 2020-03-09 11:10 | PCM.NOTE ---
Date and Time: 03/09/20 1108 Subjective Assessment: Pt. very drowsy this am, but notes breathing maybe better to the same. - Review of Systems Constitutional: No Fever, No Chills Eyes: No Symptoms Ears, Nose, & Throat: No Symptoms Respiratory: Cough, Short Of Breath Cardiac: No Chest Pain, No Edema, No Syncope Abdominal/Gastrointestinal: No Abdominal Pain, No Nausea, No Vomiting, No Diarrhea Genitourinary Symptoms: No Dysuria Musculoskeletal: No Back Pain, No Neck Pain Skin: No Rash Neurological: No Dizziness, No Focal Weakness, No Sensory Changes Psychological: No Symptoms Endocrine: No Symptoms Hematologic/Lymphatic: No Symptoms Immunological/Allergic: No Symptoms Objective Exam General Appearance: no apparent distress Neurologic Exam: cooperative Skin Exam: normal color, warm, dry, No rash, No petechiae Eye Exam: eyes nml inspection Ears, Nose, Throat Exam: normal ENT inspection Neck Exam: normal inspection Lymphatic Exam: No adenopathy Respiratory Exam: diminished breath sounds Cardiovascular Exam: regular rate/rhythm Gastrointestinal/Abdomen Exam: soft, normal bowel sounds, No tenderness Extremity Exam: normal inspection OBJECTIVE DATA Vital Signs: Vital Signs - 24 hr Temp Pulse Resp BP Pulse Ox 03/09/20 07:22 68 18 95 03/09/20 07:15 98.2 F 61 22 190/85 98 03/09/20 04:00 97.2 F 62 12 153/71 90 L 03/09/20 00:00 98.5 F 74 20 155/68 94 L 03/08/20 19:54 98.7 F 70 19 138/62 98 03/08/20 19:19 82 21 94 L 03/08/20 16:00 98.0 F 61 20 150/53 96 03/08/20 13:04 78 16 96 03/08/20 12:00 98.2 F 68 18 162/72 95 Pain Assessment - Last Documented Pain Intensity 4 Pain Scale Used [facility] Intake and Output: Intake & Output 03/06/20 03/07/20 03/08/20 03/09/20 11:59 11:59 11:59 11:59 Intake Total 1040 3619 3216 2922 Output Total 1000 3550 1600 2490 Balance 40 69 1616 432 Weight 118.3 kg 118.3 kg Lab Results: Lab Results-Last 24 Hours 03/08/20 03/08/20 03/08/20 Range/Units 10:40 10:40 16:09 WBC 8.8 (4.0-10.5) K/mm3 RBC 3.14 L (4.1-5.6) M/mm3 Hgb 7.7 L (12.5-18.0) gm/dl Hct 26.7 L (42-50) % MCV 85.0 (78-100) fl MCH 24.5 L (26-32) pg MCHC 28.8 L (32-36) g/dl RDW 16.1 H (11.5-14.0) % Plt Count 235 (150-450) K/mm3 MPV 9.6 (7.5-11.0) fl Gran % 91.9 H (36.0-66.0) % Eos # (Auto) 0 (0-0.5) Absolute Lymphs (auto) 0.38 L (1.0-4.6) Absolute Monos (auto) 0.33 (0.0-1.3) Lymphocytes % 4.3 L (24.0-44.0) % Monocytes % 3.7 (0.0-12.0) % Eosinophils % 0.0 (0.00-5.0) % Basophils % 0.1 (0.0-0.4) % Absolute Granulocytes 8.09 H (1.4-6.9) Basophils # 0.01 (0-0.4) Sodium 135 L (137-145) mmol/L Potassium 4.9 (3.5-5.1) mmol/L Chloride 101 (98-107) mmol/L Carbon Dioxide 30 (22-30) mmol/L Anion Gap 9.2 (5-15) MEQ/L BUN 25 H (9-20) mg/dL Creatinine 1.10 (0.66-1.25) mg/dL Estimated GFR > 60.0 ML/MIN Glucose 375 H (74-106) mg/dL POC Glucometer 318 H (74 to 106) mg/dL Calcium 8.8 (8.4-10.2) mg/dL Total Bilirubin 0.30 (0.2-1.3) mg/dL AST 21 (17-59) U/L ALT 20 (0-50) U/L Alkaline Phosphatase 78 (38-126) U/L Serum Total Protein 6.0 L (6.3-8.2) g/dL Albumin 3.3 L (3.5-5.0) g/dL Slides for Path Review YES 03/08/20 03/09/20 03/09/20 Range/Units 20:47 06:57 10:45 WBC (4.0-10.5) K/mm3 RBC (4.1-5.6) M/mm3 Hgb (12.5-18.0) gm/dl Hct (42-50) % MCV (78-100) fl MCH (26-32) pg MCHC (32-36) g/dl RDW (11.5-14.0) % Plt Count (150-450) K/mm3 MPV (7.5-11.0) fl Gran % (36.0-66.0) % Eos # (Auto) (0-0.5) Absolute Lymphs (auto) (1.0-4.6) Absolute Monos (auto) (0.0-1.3) Lymphocytes % (24.0-44.0) % Monocytes % (0.0-12.0) % Eosinophils % (0.00-5.0) % Basophils % (0.0-0.4) % Absolute Granulocytes (1.4-6.9) Basophils # (0-0.4) Sodium (137-145) mmol/L Potassium (3.5-5.1) mmol/L Chloride (98-107) mmol/L Carbon Dioxide (22-30) mmol/L Anion Gap (5-15) MEQ/L BUN (9-20) mg/dL Creatinine (0.66-1.25) mg/dL Estimated GFR ML/MIN Glucose (74-106) mg/dL POC Glucometer 398 H 335 H 455 H (74 to 106) mg/dL Calcium (8.4-10.2) mg/dL Total Bilirubin (0.2-1.3) mg/dL AST (17-59) U/L ALT (0-50) U/L Alkaline Phosphatase (38-126) U/L Serum Total Protein (6.3-8.2) g/dL Albumin (3.5-5.0) g/dL Slides for Path Review Multi-Disciplinary Progress Notes: Multi-Disciplinary Progress Notes 03/09/20 07:25 Respiratory Note by Chapis Meléndez PT'S O2 SAT ON ROOM AIR WHILE AT REST WAS 86%. PT WAS PLACED BACK ON 2LPM NASAL CANNULA. O2 SAT QUICKLY INCREASED TO 94%. NURSE AWARE. Initialized on 03/09/20 07:25 - END OF NOTE Assessment/Plan (1) COPD exacerbation Current Visit: Yes Status: Acute Assessment & Plan: Continue current treatment, may be ready for d/c in the am. Code(s): J44.1 - CHRONIC OBSTRUCTIVE PULMONARY DISEASE W (ACUTE) EXACERBATION
[2020-03-09 11:28] LABS: ALBUMIN 3.3 g/dL (3.5-5.0); ALKALINE PHOSPHATASE 74 U/L (38-126); ANION GAP 10.4 MEQ/L (5-15); BLOOD UREA NITROGEN 32 mg/dL (9-20); CHLORIDE 100 mmol/L (98-107); Calcium 8.9 mg/dL (8.4-10.2); Carbon Dioxide 30 mmol/L (22-30); Creatinine 1 1.11 mg/dL (0.66-1.25); EST GLOMERULAR FILTRATION RATE > 60.0 ML/MIN; Glucose 428 mg/dL (74-106); SGOT/AST 15 U/L (17-59); SGPT/ALT 19 U/L (0-50); SODIUM 135 mmol/L (137-145); Total Protein 5.9 g/dL (6.3-8.2)
[2020-03-09] MEDS: Vitamin C 500 MG PO SCH ×2 (12:13→22:23)
[2020-03-09 15:03] LABS: ANISOCYTOSIS 1+; BAND 1 % (0.0-2.0); Basophil 1 % (0.0-1.0); Lymphocytes 2 % (24-44); Monocyte 2 % (0.0-12.0); Neutrophils 94 % (36.-66.); Total Cells Counted 100
[2020-03-09 15:04] LABS: Hypochromia 1+; Platelet Estimate NORMAL (NORMAL); Toxic Granulation 2+
[2020-03-09] MEDS ORDERED: Glucophage 500 MG PO SCH (22:00)
[2020-03-09] MEDS: ZOCOR 20MG PO SCH (22:22)
[2020-03-09] MEDS: ATARAX 25 MG PO SCH (22:23)
[2020-03-09] MEDS: NORCO 5/325 MG PO PRN (22:23)
[2020-03-09] MEDS: Effexor XR 75 MG PO SCH (22:23)
[2020-03-09] MEDS: DESYREL 50 MG PO SCH (22:23)
[2020-03-10] MEDS: Sodium Chloride 0.9% 1000 ML 1,000 ML IV SCH ×3 (00:10→23:01)
[2020-03-10] MEDS: DUONEB 0.5-3 MG/3 ml Neb IH SCH ×3 (05:42→19:43)
[2020-03-10] MEDS: Advair Hfa 230/21 Mcg COMMON CANISTER IH SCH ×2 (05:43→19:45)
[2020-03-10] MEDS: solu-MEDROL 125 MG IV SCH ×3 (06:04→21:38)
[2020-03-10] MEDS: Glucophage 500 MG PO SCH ×2 (08:09→18:09)
[2020-03-10] MEDS: HUMALOG SQ SCH ×3 (08:10→18:09)
[2020-03-10] MEDS: SENOKOT 8.6 MG PO SCH ×2 (09:50→21:37)
[2020-03-10] MEDS: NEURONTIN 300 MG PO SCH ×3 (09:50→21:37)
[2020-03-10] MEDS: ENOXAPARIN SODIUM SQ SCH (09:50)
[2020-03-10] MEDS: Vitamin C 500 MG PO SCH ×2 (09:51→21:37)
[2020-03-10] MEDS: Lantus Insulin SQ SCH ×2 (09:51→21:37)
[2020-03-10] MEDS: Vitamin B-12 500 MCG PO SCH (09:51)
[2020-03-10] MEDS: Levofloxacin 500MG/100ML D5W 500 MG/100 ML BAG IV SCH (09:51)
[2020-03-10] MEDS: Protonix 40MG Tablet PO SCH ×2 (09:51→21:37)
[2020-03-10] MEDS: FIBERCON 625 MG PO SCH (09:52)
[2020-03-10] MEDS: HUMALOG SQ PRN ×3 (09:52→21:38)
[2020-03-10] MEDS: VITAMIN D PO SCH ×2 (09:52→21:37)
[2020-03-10 10:15] LABS: Hematocrit 30.4 % (42-50); Hemoglobin 8.6 gm/dl (12.5-18.0); Mean Cell Volume 84.2 fl (78-100); Mean Corpuscular Hemoglobin 23.8 pg (26-32); Mean Corpuscular Hgb Concent. 28.3 g/dl (32-36); Platelet Count 278 K/mm3 (150-450); Red Blood Count 3.61 M/mm3 (4.1-5.6); Red Cell Distribution Width 16.3 % (11.5-14.0); White Blood Count 10.5 K/mm3 (4.0-10.5)
[2020-03-10 10:44] LABS: Lymphocytes 9 % (24-44); Monocyte 2 % (0.0-12.0); Neutrophils 89 % (36.-66.); Total Cells Counted 100
[2020-03-10 10:45] LABS: Hypochromia 1+; Platelet Estimate NORMAL (NORMAL)
[2020-03-10 10:57] LABS: ALBUMIN 3.7 g/dL (3.5-5.0); ALKALINE PHOSPHATASE 78 U/L (38-126); ANION GAP 15.1 MEQ/L (5-15); BLOOD UREA NITROGEN 33 mg/dL (9-20); CHLORIDE 97 mmol/L (98-107); Calcium 9.2 mg/dL (8.4-10.2); Carbon Dioxide 26 mmol/L (22-30); Creatinine 1 1.16 mg/dL (0.66-1.25); EST GLOMERULAR FILTRATION RATE > 60.0 ML/MIN; Glucose 416 mg/dL (74-106); Potassium 5.2 mmol/L (3.5-5.1); SGOT/AST 19 U/L (17-59); SGPT/ALT 24 U/L (0-50); SODIUM 133 mmol/L (137-145); Total Protein 6.5 g/dL (6.3-8.2)
--- NOTE | 2020-03-10 13:53 | PCM.DS ---
Discharge Summary Date of Admission: 03/06/20 09:30 Admitting Physician: LIZBET PAYAN DO Primary Care Provider: [facility] Allergies Allergies ginseng Allergy (Verified 03/05/20 19:04) Penicillins Allergy (Verified 03/05/20 19:04) Hospital Summary - Hospital Course Hospital Course: Patient was admitted thru ER with exacerbation of COPD. He has improved but will need O2 at home. He is anemic and has CAD but no Hx GI bleed. Hemetest stool ordered but no BM since order. IDDM2 uncontrolled continued on home insulin dosage and sliding scale. UTI with final culture still pending.Indwelling catheter maintained for? months .Treated with IV Levoquin . Patient has improved but not to baseline. Energy has improved. He will require close follow up with [facility]. He has Rx for home nebulizer duoneb treatments and Home O2 has been ordered. - Vitals & Intake/Output Vital Signs: Vital Signs Temperature 99.2 F 03/10/20 12:00 Pulse Rate 82 03/10/20 13:00 Respiratory Rate 22 03/10/20 13:00 Blood Pressure 163/70 03/10/20 12:00 O2 Sat by Pulse Oximetry 95 03/10/20 13:00 Intake & Output: Intake & Output 03/08/20 03/09/20 03/10/20 03/11/20 11:59 11:59 11:59 11:59 Intake Total 3216 2922 3501 Output Total 1600 2490 3620 Balance 1616 432 -119 Weight 118.3 kg - Lab Result Diagrams: 03/10/20 09:50 03/10/20 09:50 Lab Results-Last 24 Hrs: Lab Results-Last 24 Hours 03/09/20 03/09/20 03/09/20 Range/Units 11:10 16:20 21:53 WBC (4.0-10.5) K/mm3 RBC (4.1-5.6) M/mm3 Hgb (12.5-18.0) gm/dl Hct (42-50) % MCV (78-100) fl MCH (26-32) pg MCHC (32-36) g/dl RDW (11.5-14.0) % Plt Count (150-450) K/mm3 MPV (7.5-11.0) fl Segmented Neutrophils 94 H (36.-66.) % Band Neutrophils 1 (0.0-2.0) % Lymphocytes (Manual) 2 L (24-44) % Monocytes (Manual) 2 (0.0-12.0) % Basophils (Manual) 1 (0.0-1.0) % Hypochromia 1+ Toxic Granulation 2+ Platelet Estimate NORMAL (NORMAL) RBC Morphology ABNORMAL Anisocytosis 1+ Sodium (137-145) mmol/L Potassium (3.5-5.1) mmol/L Chloride (98-107) mmol/L Carbon Dioxide (22-30) mmol/L Anion Gap (5-15) MEQ/L BUN (9-20) mg/dL Creatinine (0.66-1.25) mg/dL Estimated GFR ML/MIN Glucose (74-106) mg/dL POC Glucometer 349 H 313 H (74 to 106) mg/dL Calcium (8.4-10.2) mg/dL Total Bilirubin (0.2-1.3) mg/dL AST (17-59) U/L ALT (0-50) U/L Alkaline Phosphatase (38-126) U/L Serum Total Protein (6.3-8.2) g/dL Albumin (3.5-5.0) g/dL 03/10/20 03/10/20 03/10/20 Range/Units 07:19 09:50 09:50 WBC 10.5 (4.0-10.5) K/mm3 RBC 3.61 L (4.1-5.6) M/mm3 Hgb 8.6 L (12.5-18.0) gm/dl Hct 30.4 L (42-50) % MCV 84.2 (78-100) fl MCH 23.8 L (26-32) pg MCHC 28.3 L (32-36) g/dl RDW 16.3 H (11.5-14.0) % Plt Count 278 (150-450) K/mm3 MPV 10.0 (7.5-11.0) fl Segmented Neutrophils 89 H (36.-66.) % Band Neutrophils (0.0-2.0) % Lymphocytes (Manual) 9 L (24-44) % Monocytes (Manual) 2 (0.0-12.0) % Basophils (Manual) (0.0-1.0) % Hypochromia 1+ Toxic Granulation Platelet Estimate NORMAL (NORMAL) RBC Morphology NORMAL Anisocytosis Sodium 133 L (137-145) mmol/L Potassium 5.2 H (3.5-5.1) mmol/L Chloride 97 L (98-107) mmol/L Carbon Dioxide 26 (22-30) mmol/L Anion Gap 15.1 H (5-15) MEQ/L BUN 33 H (9-20) mg/dL Creatinine 1.16 (0.66-1.25) mg/dL Estimated GFR > 60.0 ML/MIN Glucose 416 H (74-106) mg/dL POC Glucometer 295 H (74 to 106) mg/dL Calcium 9.2 (8.4-10.2) mg/dL Total Bilirubin 0.30 (0.2-1.3) mg/dL AST 19 (17-59) U/L ALT 24 (0-50) U/L Alkaline Phosphatase 78 (38-126) U/L Serum Total Protein 6.5 (6.3-8.2) g/dL Albumin 3.7 (3.5-5.0) g/dL 11/16/20 Range/Units 11:35 WBC (4.0-10.5) K/mm3 RBC (4.1-5.6) M/mm3 Hgb (12.5-18.0) gm/dl Hct (42-50) % MCV (78-100) fl MCH (26-32) pg MCHC (32-36) g/dl RDW (11.5-14.0) % Plt Count (150-450) K/mm3 MPV (7.5-11.0) fl Segmented Neutrophils (36.-66.) % Band Neutrophils (0.0-2.0) % Lymphocytes (Manual) (24-44) % Monocytes (Manual) (0.0-12.0) % Basophils (Manual) (0.0-1.0) % Hypochromia Toxic Granulation Platelet Estimate (NORMAL) RBC Morphology Anisocytosis Sodium (137-145) mmol/L Potassium (3.5-5.1) mmol/L Chloride (98-107) mmol/L Carbon Dioxide (22-30) mmol/L Anion Gap (5-15) MEQ/L BUN (9-20) mg/dL Creatinine (0.66-1.25) mg/dL Estimated GFR ML/MIN Glucose (74-106) mg/dL POC Glucometer 351 H (74 to 106) mg/dL Calcium (8.4-10.2) mg/dL Total Bilirubin (0.2-1.3) mg/dL AST (17-59) U/L ALT (0-50) U/L Alkaline Phosphatase (38-126) U/L Serum Total Protein (6.3-8.2) g/dL Albumin (3.5-5.0) g/dL Micro Results-Entire Visit: Microbiology 03/05/20 19:19 Urine Culture - Preliminary Urine, Void ADDITIONAL TESTING IS REQUIRED TO OBTAIN ID AND SENSITIVITY. SPECIMEN HAS BEEN SENT TO REFERENCE LAB, WITH FINAL RESULT EXPECTED WITHIN 96 HOURS. Accuchecks Date 03/10/20 Date 03/10/20 - Procedures and Test Procedures and Tests throughout Hospitalization: Therapy Orders & Screens 03/05/20 19:44 Respiratory Therapy Assessment DAILY Comment: 03/06/20 01:00 Oxygen Oxymask LPM 2 lpm Comment: 03/06/20 01:53 Oxygen Nasal Cannula 2 lpm Comment: Diagnosis: COPD exacerbation 03/06/20 02:56 RT Screen per Nursing Assess ONCE Comment: Protocol Order Physician Instructions: Greater than 3 points order RT Admission Screen Reason For Exam: Triggered on Admission Diagnosis: COPD exacerbation, hypoxia Diagnosis: COPD exacerbation, hypoxia Pneumonia: No Home O2: No Asthma: Yes CHF: No Home CPAP/BIPAP: No: states he is supposed to Home Nebs/MDI: Yes Total Points: 9 03/06/20 07:00 Respiratory MDI BID Comment: Diagnosis: COPD exacerbation 03/06/20 07:06 Peak Expiratory Flow Rate ONCE Comment: Reason For Exam: Diagnosis: COPD exacerbation, hypoxia 03/09/20 07:24 Peak Expiratory Flow Rate ONCE Comment: Reason For Exam: Diagnosis: COPD EXACERBATION 03/10/20 08:58 PT Eval & Treat (MD Order) ONCE Reason for Eval:: WEAKNESS Diagnosis: COPD EXACERBATION Discharge Exam General Appearance: no apparent distress Neurologic Exam: alert, oriented x 3, cooperative, normal mood/affect Eye Exam: eyes nml inspection Ears, Nose, Throat Exam: normal ENT inspection Neck Exam: normal inspection Respiratory Exam: diminished breath sounds (no wheeze,no ronchi no rales) Cardiovascular Exam: regular rate/rhythm Gastrointestinal/Abdomen Exam: soft (decreased BS,nontender) Male Genitalia Exam: other (indwelling catheter -urine is light yellow and clear) Extremity Exam: normal range of motion (no pitting edema) Final Diagnosis/Problem List - Final Discharge Diagnosis/Problem (1) COPD exacerbation Current Visit: Yes Status: Acute Code(s): J44.1 - CHRONIC OBSTRUCTIVE PULMONARY DISEASE W (ACUTE) EXACERBATION (2) Eosinophilia Current Visit: Yes Status: Acute Code(s): D72.19 - OTHER EOSINOPHILIA (3) Hypoxia Current Visit: Yes Status: Acute Code(s): R09.02 - HYPOXEMIA (4) Elevated d-dimer Current Visit: Yes Status: Acute Code(s): R79.89 - OTHER SPECIFIED ABNORMAL FINDINGS OF BLOOD CHEMISTRY (5) Elevated troponin Current Visit: Yes Status: Acute Code(s): R77.8 - OTHER SPECIFIED ABNORMALITIES OF PLASMA PROTEINS (6) Presence of stent in coronary artery in patient with coronary artery disease Current Visit: Yes Status: Chronic Code(s): I25.10 - ATHSCL HEART DISEASE OF [place] CORONARY ARTERY W/O ANG PCTRS; Z95.5 - PRESENCE OF CORONARY ANGIOPLASTY IMPLANT AND GRAFT (7) DM2 (diabetes mellitus, type 2) Current Visit: Yes Status: Chronic (8) Anemia Current Visit: No Status: Acute Code(s): D64.9 - ANEMIA, UNSPECIFIED - Discharge Disposition: Home, Self-Care Condition: Stable Prescriptions: New Nebulizer/Compressor [Comp-Air Nebulizer System] 1 each MC TID 90 Days each Prednisone 10 mg [Deltasone 10 mg] 0 mg PO TID #60 tablet Albuterol/Ipratropium 3ml Neb* [DUONEB 0.5-3 MG/3 ml Neb] 3 ml IH TID #90 ampul.neb Continue Venlafaxine HCl [Venlafaxine HCl ER] 225 mg PO HS Albuterol Sulfate [Proventil Hfa] 6.7 gm IH Q6HPRN PRN PRN Reason: RESP Budesonide/Formoterol Fumarate [Symbicort 160-4.5 Mcg Inhaler] 6 gm IH BID PANTOPRAZOLE 40 mg Tablet [Protonix 40MG Tablet] 40 mg PO BID Gabapentin 900 mg PO TID Trazodone HCl 100 mg PO HS hydrOXYzine pamoate [Hydroxyzine Pamoate] 50 mg PO HS Docusate Sodium [Stool Softener] 50 mg PO BID Cyanocobalamin (Vitamin B-12) [Cyanocobalamin] 1,000 mcg PO DAILY Calcium Polycarbophil 625 mg PO DAILY Cholecalciferol (Vitamin D3) [Vitamin D3] 1,000 unit PO BID Atorvastatin Calcium 40 mg PO HS Sennosides 8.6 mg PO BID Ascorbic Acid [Vitamin C] 1,000 mg PO BID Hydrocodone/Acetaminophen [Hydrocodon-Acetaminophen 5-325] 1 each PO BID PRN Insulin Glargine [Lantus Insulin] 45 unit SQ BID Insulin Lispro [Humalog] 35 unit SQ BID Metformin HCl 0 mg PO DIRECTIONS UNKNOWN Additional Instructions: YOU ARE TO WEAR 3L/NC AT REST AND 6L/NC WITH ACTIVITY SAVE YOUR RECEIPTS FOR YOUR MEDS AND NEBULIZER MACHINE CALL [facility] [place] TO FIND OUT HOW TO SEND YOUR RECEIPTS IN FOR YOUR NEB ULIZER MACHINE AND MEDS IN ORDER TO GET REIMBURSED Follow up with: LIZBET PAYAN DO [ACTIVE STAFF] -
[2020-03-10] MEDS ORDERED: Protonix 40MG Tablet ONE (21:28)
[2020-03-10] MEDS: ATARAX 25 MG PO SCH (21:37)
[2020-03-10] MEDS: Effexor XR 75 MG PO SCH (21:37)
[2020-03-10] MEDS: DESYREL 50 MG PO SCH (21:37)
[2020-03-10] MEDS: ZOCOR 20MG PO SCH (21:37)
[2020-03-11] MEDS: solu-MEDROL 125 MG IV SCH (05:43)
[2020-03-11] MEDS: HUMALOG SQ SCH ×2 (07:42→12:17)
[2020-03-11] MEDS: Glucophage 500 MG PO SCH (07:42)
[2020-03-11] MEDS: Advair Hfa 230/21 Mcg COMMON CANISTER IH SCH (08:07)
[2020-03-11] MEDS: DUONEB 0.5-3 MG/3 ml Neb IH SCH (08:07)
[2020-03-11] MEDS ORDERED: NORCO 5/325 MG PO PRN (08:26)
--- NOTE | 2020-03-11 08:58 | PCM.DCORD ---
- Discharge Disposition: Home, Self-Care Condition: Stable Prescriptions: New Nebulizer/Compressor [Comp-Air Nebulizer System] 1 each MC TID 90 Days each Prednisone 10 mg [Deltasone 10 mg] 0 mg PO TID #60 tablet Albuterol/Ipratropium 3ml Neb* [DUONEB 0.5-3 MG/3 ml Neb] 3 ml IH TID #90 ampul.neb Continue Venlafaxine HCl [Venlafaxine HCl ER] 225 mg PO HS Albuterol Sulfate [Proventil Hfa] 6.7 gm IH Q6HPRN PRN PRN Reason: RESP Budesonide/Formoterol Fumarate [Symbicort 160-4.5 Mcg Inhaler] 6 gm IH BID PANTOPRAZOLE 40 mg Tablet [Protonix 40MG Tablet] 40 mg PO BID Gabapentin 900 mg PO TID Trazodone HCl 100 mg PO HS hydrOXYzine pamoate [Hydroxyzine Pamoate] 50 mg PO HS Docusate Sodium [Stool Softener] 50 mg PO BID Cyanocobalamin (Vitamin B-12) [Cyanocobalamin] 1,000 mcg PO DAILY Calcium Polycarbophil 625 mg PO DAILY Cholecalciferol (Vitamin D3) [Vitamin D3] 1,000 unit PO BID Atorvastatin Calcium 40 mg PO HS Sennosides 8.6 mg PO BID Ascorbic Acid [Vitamin C] 1,000 mg PO BID Hydrocodone/Acetaminophen [Hydrocodon-Acetaminophen 5-325] 1 each PO BID PRN Insulin Glargine [Lantus Insulin] 45 unit SQ BID Insulin Lispro [Humalog] 35 unit SQ BID Metformin HCl 0 mg PO DIRECTIONS UNKNOWN Additional Instructions: YOU ARE TO WEAR 3L/NC AT REST AND 6L/NC WITH ACTIVITY SAVE YOUR RECEIPTS FOR YOUR MEDS AND NEBULIZER MACHINE CALL [facility] [place] TO FIND OUT HOW TO SEND YOUR RECEIPTS IN FOR YOUR NEBULIZER MACHINE AND MEDS IN ORDER TO GET REIMBURSED Follow up with: LIZBET PAYAN DO [ACTIVE STAFF] -
[2020-03-11] MEDS: Vitamin B-12 500 MCG PO SCH (09:09)
[2020-03-11] MEDS: NEURONTIN 300 MG PO SCH (09:09)
[2020-03-11] MEDS: VITAMIN D PO SCH (09:09)
[2020-03-11] MEDS: Levofloxacin 500MG/100ML D5W 500 MG/100 ML BAG IV SCH (09:10)
[2020-03-11] MEDS: SENOKOT 8.6 MG PO SCH (09:10)
[2020-03-11] MEDS: Vitamin C 500 MG PO SCH (09:10)
[2020-03-11] MEDS: Lantus Insulin SQ SCH (09:10)
[2020-03-11] MEDS: FIBERCON 625 MG PO SCH (09:11)
[2020-03-11] MEDS: ENOXAPARIN SODIUM SQ SCH (09:11)
[2020-03-11] MEDS: Protonix 40MG Tablet PO SCH ×2 (09:23→09:34)
[2020-03-11 12:56] VITALS: BP 147/64; PULSE 82; O2SAT 97
== END 2020-03-11 14:10 | disposition home or self-care (01) | DRG 191 ==
LOC: ED 18:46 → MED SURG 03-06 01:50 → OBSVTOIN 03-06 09:30
PROVIDERS: ADMIT Family Medicine; ATTEND Family Medicine
DX: J44.1 Chronic obstructive pulmonary disease with (acute) exacerbation (principal); N39.0 Urinary tract infection, site not specified; R06.2 Wheezing; Z79.899 Other long term (current) drug therapy; I10 Essential (primary) hypertension; E78.00 Pure hypercholesterolemia, unspecified; J44.9 Chronic obstructive pulmonary disease, unspecified; G47.30 Sleep apnea, unspecified; D64.9 Anemia, unspecified; I25.10 Atherosclerotic heart disease of native coronary artery without angina pectoris; E11.65 Type 2 diabetes mellitus with hyperglycemia; Z79.4 Long term (current) use of insulin; D72.19 Other eosinophilia; R09.02 Hypoxemia; R79.89 Other specified abnormal findings of blood chemistry; R77.8 Other specified abnormalities of plasma proteins; Z95.5 Presence of coronary angioplasty implant and graft; R53.83 Other fatigue; R31.9 Hematuria, unspecified; M54.9 Dorsalgia, unspecified; Z11.59 Encounter for screening for other viral diseases
CPT/HCPCS: 36415; 71260; 80053; 81001; 82947; 83036; 83605; 83735; 83880; 84484; 85025; 85379; 85610; 85730; 87077; 87086; 93005; 93041; 94150; 94640; 94760; 94762; 96374; 97161; 97530; 99291; U0003; 36000; 71045; 99284; J1650; J1817; J1956; J2930; J3475; A9270-GY